=== PATIENT | male | born 1990 | race Caucasian/White ===

== ENCOUNTER 2017-11-12 10:37 | Outpatient (CLI) | payer BC, SELFPAY ==
[2017-11-12 11:58] LABS: Lithium 0.34 mmol/L (0.60-1.20)
[2017-11-12 12:11] LABS: ALT 32 U/L (12-78); AST 23 U/L (15-37); Albumin 3.9 g/dL (3.4-5.0); Alkaline Phosphatase 73 U/L (46-116); Anion Gap 7.9 mmol/L (3-11); BUN 8 mg/dL (7-18); Bilirubin, Total 1.3 mg/dL (0.2-1.0); CO2 27.1 mmol/L (21.0-32.0); CREATININE 1.07 mg/dL (0.70-1.30); Calcium 8.6 mg/dL (8.5-10.1); Chloride 105 mmol/L (98-107); Glucose 89 mg/dL (70-100); Potassium 3.9 mmol/L (3.5-5.1); Sodium 140 mmol/L (136-145); TSH 2.14 uIU/mL (0.358-3.74); Total Protein 7.2 g/dL (6.4-8.2)
== END 2017-11-12 10:57 ==
PROVIDERS: PCP Family Medicine; Visit Provider Nurse Practitioner Family
DX: F32.9 Major depressive disorder, single episode, unspecified (principal); E03.9 Hypothyroidism, unspecified; Z79.899 Other long term (current) drug therapy; Z51.81 Encounter for therapeutic drug level monitoring
CPT/HCPCS: 36415; 80053; 80178; 84443

== ENCOUNTER 2018-04-07 12:25 | Outpatient (CLI) | payer BC, SELFPAY ==
[2018-04-07 13:33] LABS: Lithium 0.54 mmol/L (0.60-1.20)
[2018-04-07 13:47] LABS: ALT 54 U/L (12-78); AST 30 U/L (15-37); Alkaline Phosphatase 86 U/L (46-116); BUN 9 mg/dL (7-18); Bilirubin, Total 1.1 mg/dL (0.2-1.0); CREATININE 0.92 mg/dL (0.70-1.30); Calcium 9.4 mg/dL (8.5-10.1); Chloride 103 mmol/L (98-107); Glucose 102 mg/dL (70-100); Potassium 3.8 mmol/L (3.5-5.1); Sodium 140 mmol/L (136-145); TSH (W/Ref FT4) 1.89 uIU/mL (0.358-3.74); Total Protein 7.7 g/dL (6.4-8.2)
== END 2018-04-07 12:45 ==
PROVIDERS: PCP Family Medicine; Visit Provider Nurse Practitioner Family
DX: F31.13 Bipolar disorder, current episode manic without psychotic features, severe (principal); Z51.81 Encounter for therapeutic drug level monitoring; Z79.899 Other long term (current) drug therapy
CPT/HCPCS: 36415; 80053; 80178; 84443

== ENCOUNTER 2018-10-13 03:03 | Emergency (ER) | payer BC, SELFPAY ==
[2018-10-13 03:06] VITALS: BP 149/85; PULSE 87; RESP 18; TEMP 36.7; O2SAT 97
--- NOTE | 2018-10-13 03:27 | W.ED.GENAD ---
Discharge Plan Disposition Patient Disposition: HOME Condition: Good Discharge Details Chief Complaint: DentalOral Clinical Impression: Pain, dental Primary Care Provider: Jerad Huggins ED Provider: Orlin Waterman Meds and New Rx's Prescriptions: New HurriCaine 20 % Gel 30 g mucous membrane Q4H PRNQty: 30 RF: 0 Continued lithium carbonate 300 mg Tablet 300 mg PO BID RF: 0 risperidone [Risperdal] 1 mg Tablet 1 mg PO DAILY RF: 0 Discharge Instructions Additional Instructions: There does not appear to be a dental infection. This seems to be pain related to a impacted wisdom tooth. You may use Tylenol for pain. Do not use anything containing nonsteroidal medication. You may use the Hurricaine gel as directed. You will need to follow-up with a dentist. Return to ED for fever, facial swelling, increasing pain, difficulty breathing, inability to swallow. Medical Decision Making Patient here with dental pain. He has fairly decent dentition with no obvious dental caries. There is no percussion tenderness of the teeth. Gingiva and mucosa look normal. He does have some pain over the left upper wisdom tooth which appears to be only partially through and impacted. I do not think he has a dental infection. Again there is no percussion tenderness of any of the left upper teeth. Will refer to dentistry for follow-up. No antibiotics at this point. Patient instructed to use Tylenol for pain. He is on lithium and should not be taking anything containing nonsteroidals. He is also given benzocaine gel 20% to use as a topical anesthetic every 4 hours as needed. Return to ED with fever, facial swelling, increasing dental pain, difficulty breathing, inability to swallow HPI General Mode of arrival: ambulatory. Date/Time Provider Initiated Documentation: 10/13/18 03:15. Limitations to Documentation: no limitations. Information obtained by: patient and RN notes reviewed. HPI Narrative: Patient presents to ED with left upper dental pain. He has had pain in the left upper jaw for about a week. Tonight it was worse. It radiates to his ear. He took Excedrin before coming in. Currently denies significant pain. Denies fever. Denies facial swelling. Denies difficulty breathing or swallowing. Related Data Home Medications Medication Instructions Recorded Confirmed benzocaine [HurriCaine] 30 g MUCOUS MEMBRANE Q4H PRN #30 gm 10/13/18 lithium carbonate 300 mg PO BID 10/13/18 10/13/18 risperidone [Risperdal] 1 mg PO DAILY 10/13/18 10/13/18 Previous Rx's Medication Instructions Recorded benzocaine [HurriCaine] 30 g MUCOUS MEMBRANE Q4H PRN #30 gm 10/13/18 Allergies Allergy/AdvReac Type Severity Reaction Status Date / Time No Known Allergies Allergy Unverified 05/20/17 16:14 General Stated Complaint: DentalOral TONE: 4 Review of Systems Constitutional Denies fever(s) ENT Reports dental pain, Denies neck pain and Denies odynophagia Cardiovascular Denies dyspnea Respiratory Denies dyspnea Gastrointestinal Denies odynophagia Musculoskeletal Denies neck pain [facility] Medical History Bipolar disorder (Chronic) Social History Smoking/Tobacco Use Status: Never Alcohol Intake: never Drug use: Never Substance use type: does not use Do you feel safe at home: Yes Do you feel safe in your relationship?: Yes Exam Const General: cooperative and no acute distress Nutritional Appearance: obese Orientation: alert and oriented x3 HENMT Head: normal to inspection, normocephalic and atraumatic Ears: external ears normal and TM's normal bilaterally Face and sinus: normal facial exam and sinuses nontender Teeth and gingiva: gingiva normal and abnormal tooth or associated gingiva (left upper wisdom tooth partially through/impacted) Neck Neck: no lymphadenopathy and no anterior neck swelling Skin General skin exam: no erythema Course Vital Signs Temperature 98.1 F 10/13/18 03:06 Pulse 87 10/13/18 03:06 Respiratory Rate 18 10/13/18 03:06 Blood Pressure 149/85 H 10/13/18 03:06 Pulse Oximetry 97 10/13/18 03:06 Temperature 98.1 F 10/13/18 03:06 Pulse 87 10/13/18 03:06 Respiratory Rate 18 10/13/18 03:06 Respiratory Effort Non-Labored 10/13/18 03:14 Blood Pressure 149/85 H 10/13/18 03:06 Pulse Oximetry 97 10/13/18 03:06 Oxygen Delivery Method Room Air 10/13/18 03:06 Oxygen Flow Rate 0 10/13/18 03:06 Pain Level 7 10/13/18 03:06
[2018-10-13] MEDS: Benzocaine 20% Gel 30 GM JAR MM (03:31)
[2018-10-13 03:39] VITALS: BP 149/85; PULSE 87; RESP 18; O2SAT 97
== END 2018-10-13 03:40 | disposition home or self-care (01) ==
PROVIDERS: Emergency Provider Emergency Medicine; PCP Family Medicine
DX: K08.89 Other specified disorders of teeth and supporting structures (principal)
CPT/HCPCS: 99283

== ENCOUNTER 2019-01-27 10:11 | Outpatient (CLI) | payer BC, SELFPAY ==
[2019-01-27 11:32] LABS: TSH (W/Ref FT4) 0.91 uIU/mL (0.36-3.74)
== END 2019-01-27 10:31 ==
PROVIDERS: PCP Family Medicine; Visit Provider Nurse Practitioner Family
DX: F32.9 Major depressive disorder, single episode, unspecified (principal); F25.9 Schizoaffective disorder, unspecified; Z79.899 Other long term (current) drug therapy
CPT/HCPCS: 36415; 84443

== ENCOUNTER 2021-06-08 20:28 | Inpatient (IN) | payer MEDICAID, SELFPAY ==
[2021-06-08] VITALS (36 sets, daily range): BP systolic 122–153; BP diastolic 75–117; PULSE 89–142; RESP 10–31; TEMP 36.6; O2SAT 96–100
--- NOTE | 2021-06-08 20:30 | RT.EKG_ITS ---
APPROVED REPORT Exam: Resting ECG Reason for Exam: tachycardia Patient Location: E HR:117 bpm ECG Measurements Heart Rate 117 AXIS TN 119 P 34 QRSd 84 QRS 30 QT 325 T 1 QTc 454 Conclusion Sinus tachycardia...rate> 99
--- NOTE | 2021-06-08 20:30 | DI.CT_ITS ---
Exam(s) CT HEAD WO EXAM: CT HEAD WO CLINICAL HISTORY: mental status change. TECHNIQUE: Imaging Protocol: Axial computed tomography images with coronal and sagittal reformatted images were created and reviewed COMPARISON: No exams were available for comparison FINDINGS: Ventricles and Extra axial spaces: Normal in size and morphology for the patient's age. Hemorrhage: None. Cerebral parenchyma: Normal. Midline shift: None. Brainstem/Cerebellum: Normal. Calvarium: Normal. Visualized Paranasal sinuses/Mastoids: Mild chronic sinus disease. No fluid levels. Soft Tissues: Unremarkable. IMPRESSION: No acute intracranial process. RADIATION DOSE DELIVERED: 875.13mGy.cm Total DLP DATA REPOSITORY: All CT scans at this facility are submitted to the National Radiology Data Registry (NRDR) Dose Index Registry (DIR) with the [employer] (A[employer]). RADIATION OPTIMIZATION: All CT scans at this facility use at least one of these dose optimization te chniques: automated exposure control; mA and/or kV adjustment per patient size (includes targeted exa ms where dose is matched to clinical indication); or iterative reconstruction.
--- NOTE | 2021-06-08 20:30 | DI.RAD_ITS ---
Exam(s) XR CHEST 2V PA LATERAL EXAM: XR CHEST 2V PA LATERAL CLINICAL HISTORY: mental status change TECHNIQUE: 2D digital imaging was performed of the chest. Three images were obtained. PA and later al views were obtained. COMPARISON: No exams were available for comparison FINDINGS: MEDIASTINUM: Normal. HEART: Normal. PULMONARY VASCULATURE: Normal. LUNGS: Clear. PLEURAL SPACE: No pleural effusion or pneumothorax. BONE:Within normal limits for the patient's age. OTHER FINDINGS:Normal. IMPRESSION: No acute pulmonary findings. DATA REPOSITORY: RADIATION DOSE DELIVERED:
--- NOTE | 2021-06-08 20:35 | W.ED.GENAD ---
Discharge Plan Disposition Patient Disposition: [facility] INPATIENT Condition: Stable Discharge Details Clinical Impression: Altered mental status Primary Care Provider: Jerad Huggins ED Provider: Cyrus Karimi Home Meds and New Rx's Prescriptions: No Action lithium carbonate 300 mg Tablet 300 mg PO BID 0RF risperidone [Risperdal] 1 mg Tablet 1 mg PO DAILY 0RF HurriCaine 20 % Gel 30 g mucous membrane Q4H PRNQty: 30 0RF Medical Decision Making 30-year-old male presents from home via EMS. He was seen by a friend who went to check on him and found to be sitting on the floor of his bedroom in an altered state. EMS was contacted and found the patient to be tachypneic and tachycardic, arousable and interactive but poorly understood. They report the patient having carpalpedal spasm but being responsive and appropriate with commands. Patient arrives ER afebrile, tachycardic, tachypneic, interactive but speaking in very halting sentences. He is noted to have a history of bipolar disorder. Differential diagnosis is broad including metabolic disorder, dehydration, electrolyte abnormalities, lithium toxicity. Patient IV access established, screening labs obtained, he is given fluids and referred for CT imaging of the head, chest x-ray. Patient given small aliquot of Ativan 0.5 mg. Patient's laboratories note a white count of 11, hematocrit 46, platelets 431. Venous pH is 7.48. Venous lactate 3.5. Chemistries reveal an anion gap of 20. Sodium 137, potassium 3.1, chloride 98, bicarb 18, BUN 16, creatinine 1.0. [place] level is negligible. Alcohol negative. Patient noted to have approximately 900 cc of urinary retention. Would consider diphenhydramine toxicity, particularly given the mild confusion, tachycardia and apparent urinary retention. Patient does seem to nod 'yes' when asked if he took Benadryl. His urine drug screen is positive for THC as well. Patient stated to the nurse that his mood has been down and he has had decreased p.o. intake this week. At approximately 10:30 PM he reported that he had had an attempt at hanging earlier in the week. He does not have bruising of the neck nor bruits on my exam. CT scan of the head without acute intracranial findings. Chest x-ray unremarkable. Case discussed with Dr. Gillis [facility] General Mode of arrival: EMS. Date/Time Provider Initiated Documentation: 06/08/21 20:55. Limitations to Documentation: no limitations. Information obtained by: patient and EMS. History of Present Illness 30 year old M presents to the emergency department with the chief complaint of Change in mental status, described as moderate, and is localized to the head. Patient started experiencing this unknown and it has been constant. improves with No relieving factors improve symptom(s), No exacerbating factors reported . Patient did receive the following treatments prior to arrival, none Related Data Home Medications Medication Instructions Recorded Confirmed benzocaine 20 % mucosal gel 30 g MUCOUS MEMBRANE Q4H PRN #30 gm 10/13/18 (HurriCaine) lithium carbonate 300 mg tablet 300 mg PO BID 10/13/18 10/13/18 risperidone 1 mg tablet (Risperdal) 1 mg PO DAILY 10/13/18 10/13/18 Previous Rx's Medication Instructions Recorded benzocaine 20 % mucosal gel 30 g MUCOUS MEMBRANE Q4H PRN #30 gm 10/13/18 (HurriCaine) Allergies Allergy/AdvReac Type Severity Reaction Status Date / Time No Known Allergies Allergy Unverified 05/20/17 16:14 General TONE: 4 Review of Systems Narrative: Patient unable to relate history Unobtainable due to mental status PFSH All Active Problems (Updated 06/08/21 @ 22:15 by Cyrus Karimi MD) Altered mental status (Acute) Bipolar disorder (Chronic) Social History Smoking/Tobacco Use Status: Never Smoking risk assessment performed?: Yes Alcohol Intake: never Drug use: Never Substance use type: does not use Do you feel safe at home: Yes Do you feel safe in your relationship?: Yes Exam Narrative Exam Narrative: GEN: awake, interactive. HEAD: Normocephalic, atraumatic ENT: Mucous membranes dry, oropharynx unremarkable, External ear exam unremarkable EYES: PERRL, EOMI NECK: Full ROM, no JEN, no menigismus CHEST/RESP: Nontender, clear to auscultation bilateral, no wheeze/rhonchi/rales, increased respiratory rate CARDIOVASCULAR: Regular and tachycardic, no murmur, rub shaq. 2+ Rad pulse bilateral ABDOMEN: Soft, nontender, no mass. +Bowel sounds EXT: Full ROM, no edema, no rash Neuro: Grossly normal neurologic exam, tremulous at times. Psych: Speech halting
[2021-06-08] MEDS: Normal Saline 1,000 ML 1000 ML IV ×2 (20:44→20:45)
[2021-06-08 20:48] LABS: BE (Venous) -4 mmol/L (-2-3); HCO3 (Venous) 19 mmol/L (23-28); O2 Sat (Venous) 91 %; TCO2 (Venous) 16 mmol/L (24-29); pCO2 (Venous) 26 mmHg (41-51); pH (Venous) 7.48 (7.31-7.41); pO2 (Venous) 55 mmHg
[2021-06-08 20:51] LABS: Abs Immature Grans 0.05 10^3/uL (0.0-0.06); Absolute Basophil Count 0.06 10^3/uL (0.0-0.2); Absolute Monocyte Count 1.09 10^3/uL (0.1-0.8); Absolute Neutrophil Count 7.91 10^3/uL (1.2-6.7); Basophils % 0.5; Eosinophils % 0.3; HCT 46.7 % (40.0-50.0); Immature Grans % 0.4; Lymphocytes % 21.3; MCH 31.1 pg (27.0-33.0); MCHC 36.4 % (32.0-36.0); MCV 85.4 fL (80-95); Monocytes % 9.4; Neutrophils % 68.1; Nucleated RBC 0 %; Platelet Count 431 10^3/uL (130-400); RBC 5.47 10^6/uL (4.36-5.78); RDW 12.2 % (11.8-14.1); RDW-SD 38.1 fL; WBC 11.62 10^3/uL (4.4-10.8)
[2021-06-08 20:52] LABS: Lactate 3.5 mmol/L (0.6-1.4)
[2021-06-08 20:54] LABS: Absolute Eosinophil Count 0.03 10^3/uL (0.0-0.7); Absolute Lymphocyte Count 2.48 10^3/uL (1.2-3.4)
[2021-06-08 21:12] LABS: ALT 21 U/L (16-63); AST 15 U/L (15-37); Albumin 4.8 g/dL (3.4-5.0); Alkaline Phosphatase 77 U/L (46-116); Anion Gap 20.2 mmol/L (3-11); BUN 16 mg/dL (7-18); Bilirubin, Total 3.1 mg/dL (0.2-1.0); CO2 18.8 mmol/L (21.0-32.0); Calcium 9.7 mg/dL (8.5-10.1); Chloride 98 mmol/L (98-107); Glucose 128 mg/dL (74-106); Potassium 3.1 mmol/L (3.5-5.1); Sodium 137 mmol/L (136-145); TSH (W/Ref FT4) 2.42 uIU/mL (0.36-3.74); Total Protein 8.6 g/dL (6.4-8.2)
[2021-06-08 21:15] LABS: ETHANOL BLOOD < 3.0 mg/dL (<10)
[2021-06-08 21:31] LABS: Acetaminophen < 2 ug/mL (10-30); Lithium < 0.2 mmol/l (0.6-1.2); Salicylate < 2.8 mg/dL (<2.8)
[2021-06-08 21:50] LABS: Bilirubin Moderate (Negative); Blood Trace-intact (Negative); Clarity Clear (Clear); Glucose Negative (Negative); Ketones 40 mg/dL (Negative); Leukocyte Esterase Negative (Negative); Nitrite Negative (Negative); Specific Gravity 1.025 (1.005-1.025); Urobilinogen 0.2 EU/dL (Up TO 0.2)
[2021-06-08] MEDS: LORazepam 2 MG/ML VIAL 0.5 MG IVP (21:52)
[2021-06-08 22:05] LABS: *AMPHETAMINES SCREEN URINE Negative (Negative); *BARBITURATES SCREEN URINE Negative (Negative); *BENZODIAZEPINES SCREEN URINE Negative (Negative); Cannabinoids THC Positive (Negative); Cocaine Screen,Urine Negative (Negative); METHADONE URINE SCREEN Negative (Negative); OPIATES URINE SCREEN Negative (Negative); Tricyclic Antidepressants Negative (Negative); WBC 0-2 HPF (0-5)
[2021-06-08 22:06] LABS: Bacteria Negative HPF (Negative); C & S Indicated? No; Epithelial Cells Negative HPF (Negative); Mucus Negative (Negative)
--- NOTE | 2021-06-08 22:09 | DI.VRAD_ITS ---
PROCEDURE INFORMATION: Exam: CT Head Without Contrast Exam date and time: 06/08/2021 9:11 PM Age: 30 years old Clinical indication: Other: AMS TECHNIQUE: Imaging protocol: Computed tomography of the head without contrast. Radiation optimization: All CT scans at this facility use at least one of these dose optimization techniques: automated exposure control; mA and/or kV adjustment per patient size (includes targeted exams where dose is matched to clinical indication); or iterative reconstruction. COMPARISON: No relevant prior studies available. FINDINGS: Brain: Normal. No hemorrhage. Unremarkable white matter. No mass effect. Cerebral ventricles: No ventriculomegaly. Paranasal sinuses: There is a mucous retention cyst within the left maxillary sinus. There is slight mucosal thickening of the sphenoid sinuses. The right frontal sinus is not developed. Mastoid air cells: Visualized mastoid air cells are well aerated. Bones/joints: Unremarkable. No acute fracture. Soft tissues: Unremarkable. IMPRESSION: Sinus findings as above. Dictated and Authenticated by: Miah Parks MD. Ordering:IDALMIS Bridges MD
--- NOTE | 2021-06-08 22:10 | DI.VRAD_ITS ---
PROCEDURE INFORMATION: Exam: XR Chest Exam date and time: 06/08/2021 9:17 PM Age: 30 years old Clinical indication: Other: AMS TECHNIQUE: Imaging protocol: XR of the chest. Views: 2 views. COMPARISON: No relevant prior studies available. FINDINGS: Lungs: Unremarkable. No consolidation. Pleural spaces: Unremarkable. No pleural effusion. No pneumothorax. Heart/Mediastinum: Unremarkable. No cardiomegaly. Bones/joints: Unremarkable. IMPRESSION: No acute findings. Dictated and Authenticated by: Miah Parks MD. Ordering:IDALMIS Bridges MD
[2021-06-08] MEDS: POTASSIUM CHLORIDE/0.9% NACL 1,000 ML 125 MEQ IV (22:18)
--- NOTE | 2021-06-08 22:36 | HPE_ITS ---
Date of service: 06/08/21 Time of Service: 22:36 Assessment and Plan Assessment and plan (1) Altered mental status: Status: Acute Assessment and plan: Altered state, looking like something toxic/metabolic. The unusual finding of urinary retention, in combination with tachycardia, raises question of possible anticholinergic toxicity, though this is speculative. At any rate he is acting like he has been under the influence of some (unknown) substance -- and by accounts seems to be clearing. Normal EKG (aside from sinus tach) is reassuring. I would favor continued hydration and observation. Given h/o attempted hanging I would have to burrer marker axle this (possible) OD as intentional harm. Will maintain pr ecautions and have mental health evaluate in morning. Various metabolic abnormalities noted: K -- being replenished; Bili -- unknown etiology, with normal TAs. Will trend and w/u as indicated; Respiratory alkalosis, with possible component metabolic acidosis -- this combination would raise question of salicylate toxicity, but salicylate negative. Whatever the precise etiology I suspect all related to exogenous substance. Elevated lactate noted, but patient notably not hypotensive. Will admit to ICU for close monitoring and will trend electrolytes, lactate and bilirubin. History of Present Illness History of Present Illness Chief Complaint: altered mental status Narrative: 30 male with h/o bipolar, apparently not on any meds at present -- friend went to check on him and found him altered and summoned EMS. EMS reported patient as tachypneic, tachycardic, following commands but not communicative. Here in ER initial findings of note for pulse approx 140, halting speech and non-focal exam, and after Castro placed initial 900 cc urine. Labs of note for white count 11.6, HCT 46; Na 137, K 3.1, Chloride 98, HCO3 18.8; BUN/Cr 16/1.0; TBili 3.1 with AST/ALT 15/21; UDS + THC; EKG sinus tach; CXR and head CT negative. [place] level non-detectable. VBG pH 7.48, with HCO3 18 Patient has receieved 2L fluids and 0.5 Ativan. Staff note sensorium seems to be clearing. Nurse obtains further history that patient tried to hang himself twice over the past week. I was asked to evaluate for admission. Patient denies taking any illicit substances. Denies pain or SOB. States he feels safe here but unable to elaborate on prior attempts at self harm. Review of Systems Narrative: per HPI PFSH All Active Problems Altered mental status (Acute) Bipolar disorder (Chronic) Social History Smoking/Tobacco Use Status: Never Smoking risk assessment performed?: Yes Alcohol Intake: never Drug use: Never Substance use type: does not use Do you feel safe at home: Yes Do you feel safe in your relationship?: Yes Meds Allergies and Home Medications Allergies Allergy/AdvReac Type Severity Reaction Status Date / Time No Known Allergies Allergy Unverified 05/20/17 16:14 Home Medications Medication Instructions Recorded Confirmed Type benzocaine 20 % mucosal gel 30 g MUCOUS MEMBRANE Q4H PRN #30 gm 10/13/18 Rx (HurriCaine) lithium carbonate 300 mg tablet 300 mg PO BID 10/13/18 10/13/18 History risperidone 1 mg tablet (Risperdal) 1 mg PO DAILY 10/13/18 10/13/18 History Exam Narrative Exam Narrative: 148/90, 115, 36.6, 20, 99% RA. HEENT atraumatic, pupils approx 5 mm; oral mucosa dry; neck supple; lungs clear; heart tachy/regular; abdomen +BS soft and NT; extremities trace pedal edema; neuro more or less intelligible conversation (eg, My mouth is dry) but not extended, and follows commands; moves all 4s equally Results Labs Result diagrams: 06/08/21 20:40 06/08/21 20:40 Labs: Laboratory Results - last 24 hr 06/08/21 06/08/21 06/08/21 20:40 20:40 20:40 WBC RBC Hgb Hct MCV MCH MCHC RDW Plt Count MPV Immature Gran % Neutrophils % Lymphocytes % Monocytes % Eosinophils % Basophils % Nucleated RBC % Absolute Neutrophils Absolute Lymphocytes Absolute Monocytes Absolute Eosinophils Absolute Basophils VBG pH VBG pCO2 VBG pO2 VBG HCO3 VBG Total CO2 VBG O2 Saturation VBG Base Excess VBG Lactate 3.5 H* Sodium 137 Potassium 3.1 L Chloride 98 Carbon Dioxide 18.8 L Anion Gap 20.2 H BUN 16 Creatinine 1.0 Estimated GFR/1.73 m2 >= 60.00 Glucose 128 H Calcium 9.7 Total Bilirubin 3.1 H AST 15 ALT 21 Alkaline Phosphatase 77 Total Protein 8.6 H Albumin 4.8 TSH 2.42 Urine Color Urine Clarity Urine pH Ur Specific [place] Urine Protein Urine Ketones Urine Blood Urine Nitrite Urine Bilirubin Urine Urobilinogen Ur Leukocyte Esterase Urine RBC Urine WBC Ur Epithelial Cells Urine Crystals Urine Bacteria Urine Mucus Ur Culture Indicated? Urine Glucose Salicylates < 2.8 Urine Opiates Screen Urine Methadone Screen Acetaminophen < 2 Ur Barbiturates Screen Ur Tricyclics Screen Ur Amphetamines Screen U Benzodiazepines Scrn [place] Urine Cocaine Screen Ur THC Screen Ethyl Alcohol < 3.0 06/08/21 06/08/21 06/08/21 20:40 20:40 20:40 WBC 11.62 H RBC 5.47 Hgb 17.0 Hct 46.7 MCV 85.4 MCH 31.1 MCHC 36.4 H RDW 12.2 Plt Count 431 H MPV 11.0 Immature Gran % 0.4 Neutrophils % 68.1 Lymphocytes % 21.3 Monocytes % 9.4 Eosinophils % 0.3 Basophils % 0.5 Nucleated RBC % 0 Absolute Neutrophils 7.91 H Absolute Lymphocytes 2.48 Absolute Monocytes 1.09 H Absolute Eosinophils 0.03 Absolute Basophils 0.06 VBG pH 7.48 H VBG pCO2 26 L VBG pO2 55 VBG HCO3 19 L VBG Total CO2 16 L VBG O2 Saturation 91 VBG Base Excess -4 L VBG Lactate Sodium Potassium Chloride Carbon Dioxide Anion Gap BUN Creatinine Estimated GFR/1.73 m2 Glucose Calcium Total Bilirubin AST ALT Alkaline Phosphatase Total Protein Albumin TSH Urine Color Urine Clarity Urine pH Ur Specific [place] Urine Protein Urine Ketones Urine Blood Urine Nitrite Urine Bilirubin Urine Urobilinogen Ur Leukocyte Esterase Urine RBC Urine WBC Ur Epithelial Cells Urine Crystals Urine Bacteria Urine Mucus Ur Culture Indicated? Urine Glucose Salicylates Urine Opiates Screen Urine Methadone Screen Acetaminophen Ur Barbiturates Screen Ur Tricyclics Screen Ur Amphetamines Screen U Benzodiazepines Scrn [place] < 0.2 L Urine Cocaine Screen Ur THC Screen Ethyl Alcohol 06/08/21 06/08/21 21:19 21:19 WBC RBC Hgb Hct MCV MCH MCHC RDW Plt Count MPV Immature Gran % Neutrophils % Lymphocytes % Monocytes % Eosinophils % Basophils % Nucleated RBC % Absolute Neutrophils Absolute Lymphocytes Absolute Monocytes Absolute Eosinophils Absolute Basophils VBG pH VBG pCO2 VBG pO2 VBG HCO3 VBG Total CO2 VBG O2 Saturation VBG Base Excess VBG Lactate Sodium Potassium Chloride Carbon Dioxide Anion Gap BUN Creatinine Estimated GFR/1.73 m2 Glucose Calcium Total Bilirubin AST ALT Alkaline Phosphatase Total Protein Albumin TSH Urine Color Yellow Urine Clarity Clear Urine pH 7.0 Ur Specific [place] 1.025 Urine Protein Trace H Urine Ketones 40 H Urine Blood Trace-intact H Urine Nitrite Negative Urine Bilirubin Moderate H Urine Urobilinogen 0.2 Ur Leukocyte Esterase Negative Urine RBC 5-10 H Urine WBC 0-2 Ur Epithelial Cells Negative Urine Crystals Urine Bacteria Negative Urine Mucus Negative Ur Culture Indicated? No Urine Glucose Negative Salicylates Urine Opiates Screen Negative Urine Methadone Screen Negative Acetaminophen Ur Barbiturates Screen Negative Ur Tricyclics Screen Negative Ur Amphetamines Screen Negative U Benzodiazepines Scrn Negative [place] Urine Cocaine Screen Negative Ur THC Screen Positive A Ethyl Alcohol Last Vital Signs Temp 36.6 C 06/08/21 20:34 Pulse 115 H 06/08/21 21:40 Resp 20 06/08/21 21:40 BP 148/90 H 06/08/21 21:40 Pulse Ox 99 06/08/21 21:40
[2021-06-08 23:04] LABS: COVID-19 PCR Negative (Negative); Influenza A PCR Negative (Negative); Influenza B PCR Negative (Negative); RSV PCR Negative (Negative)
[2021-06-09] VITALS (28 sets, daily range): BP systolic 121–154; BP diastolic 70–94; PULSE 95–125; RESP 11–30; TEMP 36.1–36.7; O2SAT 94–99
[2021-06-09 02:30] LABS: Lactate 0.6 mmol/L (0.6-1.4)
[2021-06-09 02:39] LABS: Anion Gap 12.6 mmol/L (3-11); CO2 22.4 mmol/L (21.0-32.0); Chloride 106 mmol/L (98-107); Potassium 3.6 mmol/L (3.5-5.1); Sodium 141 mmol/L (136-145)
[2021-06-09 02:43] LABS: Bilirubin, Direct 0.3 mg/dL (0.0-0.2)
[2021-06-09 06:58] LABS: Anion Gap 10.2 mmol/L (3-11); Bilirubin, Total 2.3 mg/dL (0.2-1.0); CO2 22.8 mmol/L (21.0-32.0); Chloride 108 mmol/L (98-107); Potassium 3.8 mmol/L (3.5-5.1); Sodium 141 mmol/L (136-145)
[2021-06-09] MEDS: POTASSIUM CHLORIDE/0.9% NACL 1,000 ML 150 MEQ IV (07:44)
--- NOTE | 2021-06-09 08:45 | INITIAL_ITS ---
- If Service Date Differs Date of service: 06/09/21 Time of Service: 08:45 Care Management Initial Assess REASON FOR HOSPITALIZATION:: AMS, possible drug OD PAST MEDICAL HISTORY/PAST SURGICAL HISTORY:: Altered mental status (Acute). Bipolar disorder (Chronic) PREVIOUS FUNCTIONAL STATUS/SOCIAL/FAMILY SUPPORTS:: Wilman resides in [facility] and has family in the area, including both of his parents. He is independent at baseline. CURRENT FUNCTIONAL STATUS:: Wilman is in the ICU with AMS-clearing per MD. He has psychomotor impairment at this time, and his movements and words are very slow. He expressed not wanting his family to be updated or involved in his care at this time; his wishes will be honored. ADVANCE DIRECTIVES:: None on file. Has patient been provided with info about the portal/API?: Yes Did the patient sign up for the portal?: No CODE STATUS:: Full Code INSURANCE COVERAGE / FINANCIAL ISSUES:: Self Pay: BRIAN referral. CURRENT HOME/COMMUNITY SERVICES/EQUIPMENT:: None, currently. PRIMARY CARE PHYSICIAN:: Jerad Huggins POTENTIAL DISCHARGE NEEDS:: [facility] Crisis Eval, BRIAN referral for insurance. PATIENT/FAMILY EDUCATION NEEDS:: Review of discharge instructions, discuss Ask Me Three. ANTICIPATED BARRIERS TO DISCHARGE:: None identified. TRANSPORTATION:: Dependent on disposition. PLAN:: Wilman continues to be monitored in the ICU. Anticipate once medically cleared, he will be evaluated by [facility] crisis screener to determine treatment plan.
--- NOTE | 2021-06-09 09:27 | W.PM.PROGNOT ---
Date of Service Date of service: 06/09/21 Time of Service: 09:27 Assessment and Plan Assessment and plan (1) Altered mental status: Status: Acute Assessment and plan: given his lactic acidosis and tachycardia and tachypnea and decreased mental status on EMS evaluation and ED evaluation this raises concerns that he may have been using a substance that we did not detect on UDS. however if he had a narcotic OD he would have been bradypneic or apneic not tachypneic. Some component of his mental status change is due to his being off his BPD meds. I will resume his lithium and risperidone and see how he responds. CC time 30 minutes (2) Bipolar disorder: Status: Chronic Assessment and plan: patient's lithium level was below detectable limits. I will put him back on his lithium and risperidone but if he is not improving then getting a tele-psych consult would be appropriate. He should be evaluated by mental health for inpatient psychiatric care given the reported attempt at hanging although there is no visible evidence that he made any serious attempt i.e. no visible bruising or abrasions on his neck (3) Lactic acidosis: Status: Resolved Assessment and plan: unclear etiology. UDS tox screen was negative except for THC. patient responded to iv fluids overnight and lactic acidosis has resolved, lactate now 0.6, and AG now 10.2. Subjective Subjective Interval history since last seen: 30-year-old male with a history of bipolar disorder who is supposed to be taking risperidone and lithium carbonate was brought to the emergency department with altered mental status. Patient was found by a friend who went to check on him and the patient was sitting on the floor of his bedroom and altered mental state. EMS was contacted and he was found to be tachypneic and tachycardic arousable but poorly interactive. On arrival to emergency department he was afebrile tachycardic and tachypneic and speaking in very halting sentences. Work-up in the emergency department included CT scan of his head that showed no acute intracranial process. Chest x-ray showed no acute cardiopulmonary findings. ECG demonstrates sinus tachycardia rate of 117 bpm with a normal [place] interval of 119 ms QTc interval 454 ms. Pertinent laboratory findings his urine drug screen was positive for THC but otherwise negative for usual drugs of abuse including negative for opiates, methadone, barbiturates, tricyclic, amphetamines, benzodiazepines, cocaine. Blood alcohol level was less than 3.0 and his acetaminophen level was less than 2 and salicylates were less than 2.8. Chemistry profile was remarkable for elevated bilirubin of 3.1 with normal AST ALT and alkaline phosphatase and a conjugated bilirubin of 0.3 BUN and creatinine were normal at 16 and 1.0 but the patient had a lactic acidosis with an anion gap of 20 carbon dioxide level of 18 and a lactate of 3.5 with a VBG pH of 7.48. Of note his lithium level was nonmeasurable. Patient was noted to have urinary retention of 900 mL and a Castro catheter was placed. Concern was raised that he may have take Benadryl causing diphenhydramine toxicity with urinary retention confusion and tachycardia. However this does not explain his lactic acidosis. Patient reportedly had attempted to hang himself earlier in the week. Patient was treated in emergency department with iv fluids x 2 liters and Ativan. He was admitted to ICU as possible O.D. of unknown substance and BPD exacerbation w/ depression and suicidal ideation. Exam Narrative Exam Narrative: Wilman is sitting up in bed he is able to talk to me but he mumbles and has trouble staying focused on my questions. When I asked him what happened yesterday he just states that he messed up. He would not give me specifics about what substances he may have taken. Information obtained by the nurse from the family indicated that in the past when he is going off his medications for his bipolar disorder he is going into like a catatonic state. Wilman is sitting up in bed just fidgeting with his hands attempting to eat a custard cup. Neck is supple no visible bruising Lungs are clear Heart is regular but tachycardic without murmur Abdomen soft nontender Extremities: no signs of cutting or needle tracks Objective Last Vital Signs Temp 36.6 C 06/09/21 04:15 Pulse 97 H 06/09/21 06:00 Resp 15 06/09/21 06:00 BP 135/73 06/09/21 06:00 Pulse Ox 95 06/09/21 06:00 Laboratory Results - last 24 hr 06/08/21 06/08/21 06/08/21 20:40 20:40 20:40 WBC RBC Hgb Hct MCV MCH MCHC RDW Plt Count MPV Immature Gran % Neutrophils % Lymphocytes % Monocytes % Eosinophils % Basophils % Nucleated RBC % Absolute Neutrophils Absolute Lymphocytes Absolute Monocytes Absolute Eosinophils Absolute Basophils VBG pH VBG pCO2 VBG pO2 VBG HCO3 VBG Total CO2 VBG O2 Saturation VBG Base Excess VBG Lactate 3.5 H* Sodium 137 Potassium 3.1 L Chloride 98 Carbon Dioxide 18.8 L Anion Gap 20.2 H BUN 16 Creatinine 1.0 Estimated GFR/1.73 m2 >= 60.00 Glucose 128 H Calcium 9.7 Total Bilirubin 3.1 H Conjugated Bilirubin AST 15 ALT 21 Alkaline Phosphatase 77 Total Protein 8.6 H Albumin 4.8 TSH 2.42 Urine Color Urine Clarity Urine pH Ur Specific [place] Urine Protein Urine Ketones Urine Blood Urine Nitrite Urine Bilirubin Urine Urobilinogen Ur Leukocyte Esterase Urine RBC Urine WBC Ur Epithelial Cells Urine Crystals Urine Bacteria Urine Mucus Ur Culture Indicated? Urine Glucose Salicylates < 2.8 Urine Opiates Screen Urine Methadone Screen Acetaminophen < 2 Ur Barbiturates Screen Ur Tricyclics Screen Ur Amphetamines Screen U Benzodiazepines Scrn [place] Urine Cocaine Screen Ur THC Screen Ethyl Alcohol < 3.0 COVID-19 Source SARS-CoV-2 (PCR) Influenza Type A (PCR) Influenza Type B (PCR) RSV (PCR) 06/08/21 06/08/21 06/08/21 20:40 20:40 20:40 WBC 11.62 H RBC 5.47 Hgb 17.0 Hct 46.7 MCV 85.4 MCH 31.1 MCHC 36.4 H RDW 12.2 Plt Count 431 H MPV 11.0 Immature Gran % 0.4 Neutrophils % 68.1 Lymphocytes % 21.3 Monocytes % 9.4 Eosinophils % 0.3 Basophils % 0.5 Nucleated RBC % 0 Absolute Neutrophils 7.91 H Absolute Lymphocytes 2.48 Absolute Monocytes 1.09 H Absolute Eosinophils 0.03 Absolute Basophils 0.06 VBG pH 7.48 H VBG pCO2 26 L VBG pO2 55 VBG HCO3 19 L VBG Total CO2 16 L VBG O2 Saturation 91 VBG Base Excess -4 L VBG Lactate Sodium Potassium Chloride Carbon Dioxide Anion Gap BUN Creatinine Estimated GFR/1.73 m2 Glucose Calcium Total Bilirubin Conjugated Bilirubin AST ALT Alkaline Phosphatase Total Protein Albumin TSH Urine Color Urine Clarity Urine pH Ur Specific [place] Urine Protein Urine Ketones Urine Blood Urine Nitrite Urine Bilirubin Urine Urobilinogen Ur Leukocyte Esterase Urine RBC Urine WBC Ur Epithelial Cells Urine Crystals Urine Bacteria Urine Mucus Ur Culture Indicated? Urine Glucose Salicylates Urine Opiates Screen Urine Methadone Screen Acetaminophen Ur Barbiturates Screen Ur Tricyclics Screen Ur Amphetamines Screen U Benzodiazepines Scrn [place] < 0.2 L Urine Cocaine Screen Ur THC Screen Ethyl Alcohol COVID-19 Source SARS-CoV-2 (PCR) Influenza Type A (PCR) Influenza Type B (PCR) RSV (PCR) 06/08/21 06/08/21 06/08/21 21:19 21:19 21:36 WBC RBC Hgb Hct MCV MCH MCHC RDW Plt Count MPV Immature Gran % Neutrophils % Lymphocytes % Monocytes % Eosinophils % Basophils % Nucleated RBC % Absolute Neutrophils Absolute Lymphocytes Absolute Monocytes Absolute Eosinophils Absolute Basophils VBG pH VBG pCO2 VBG pO2 VBG HCO3 VBG Total CO2 VBG O2 Saturation VBG Base Excess VBG Lactate Sodium Potassium Chloride Carbon Dioxide Anion Gap BUN Creatinine Estimated GFR/1.73 m2 Glucose Calcium Total Bilirubin Conjugated Bilirubin AST ALT Alkaline Phosphatase Total Protein Albumin TSH Urine Color Yellow Urine Clarity Clear Urine pH 7.0 Ur Specific [place] 1.025 Urine Protein Trace H Urine Ketones 40 H Urine Blood Trace-intact H Urine Nitrite Negative Urine Bilirubin Moderate H Urine Urobilinogen 0.2 Ur Leukocyte Esterase Negative Urine RBC 5-10 H Urine WBC 0-2 Ur Epithelial Cells Negative Urine Crystals Urine Bacteria Negative Urine Mucus Negative Ur Culture Indicated? No Urine Glucose Negative Salicylates Urine Opiates Screen Negative Urine Methadone Screen Negative Acetaminophen Ur Barbiturates Screen Negative Ur Tricyclics Screen Negative Ur Amphetamines Screen Negative U Benzodiazepines Scrn Negative [place] Urine Cocaine Screen Negative Ur THC Screen Positive A Ethyl Alcohol COVID-19 Source Not Applicable SARS-CoV-2 (PCR) Negative Influenza Type A (PCR) Negative Influenza Type B (PCR) Negative RSV (PCR) Negative 06/09/21 06/09/21 06/09/21 02:23 02:23 02:23 WBC RBC Hgb Hct MCV MCH MCHC RDW Plt Count MPV Immature Gran % Neutrophils % Lymphocytes % Monocytes % Eosinophils % Basophils % Nucleated RBC % Absolute Neutrophils Absolute Lymphocytes Absolute Monocytes Absolute Eosinophils Absolute Basophils VBG pH VBG pCO2 VBG pO2 VBG HCO3 VBG Total CO2 VBG O2 Saturation VBG Base Excess VBG Lactate 0.6 Sodium 141 Potassium 3.6 Chloride 106 Carbon Dioxide 22.4 Anion Gap 12.6 H BUN Creatinine Estimated GFR/1.73 m2 Glucose Calcium Total Bilirubin Conjugated Bilirubin 0.3 H AST ALT Alkaline Phosphatase Total Protein Albumin TSH Urine Color Urine Clarity Urine pH Ur Specific [place] Urine Protein Urine Ketones Urine Blood Urine Nitrite Urine Bilirubin Urine Urobilinogen Ur Leukocyte Esterase Urine RBC Urine WBC Ur Epithelial Cells Urine Crystals Urine Bacteria Urine Mucus Ur Culture Indicated? Urine Glucose Salicylates Urine Opiates Screen Urine Methadone Screen Acetaminophen Ur Barbiturates Screen Ur Tricyclics Screen Ur Amphetamines Screen U Benzodiazepines Scrn [place] Urine Cocaine Screen Ur THC Screen Ethyl Alcohol COVID-19 Source SARS-CoV-2 (PCR) Influenza Type A (PCR) Influenza Type B (PCR) RSV (PCR) 06/09/21 06:35 WBC RBC Hgb Hct MCV MCH MCHC RDW Plt Count MPV Immature Gran % Neutrophils % Lymphocytes % Monocytes % Eosinophils % Basophils % Nucleated RBC % Absolute Neutrophils Absolute Lymphocytes Absolute Monocytes Absolute Eosinophils Absolute Basophils VBG pH VBG pCO2 VBG pO2 VBG HCO3 VBG Total CO2 VBG O2 Saturation VBG Base Excess VBG Lactate Sodium 141 Potassium 3.8 Chloride 108 H Carbon Dioxide 22.8 Anion Gap 10.2 BUN Creatinine Estimated GFR/1.73 m2 Glucose Calcium Total Bilirubin 2.3 H Conjugated Bilirubin AST ALT Alkaline Phosphatase Total Protein Albumin TSH Urine Color Urine Clarity Urine pH Ur Specific [place] Urine Protein Urine Ketones Urine Blood Urine Nitrite Urine Bilirubin Urine Urobilinogen Ur Leukocyte Esterase Urine RBC Urine WBC Ur Epithelial Cells Urine Crystals Urine Bacteria Urine Mucus Ur Culture Indicated? Urine Glucose Salicylates Urine Opiates Screen Urine Methadone Screen Acetaminophen Ur Barbiturates Screen Ur Tricyclics Screen Ur Amphetamines Screen U Benzodiazepines Scrn [place] Urine Cocaine Screen Ur THC Screen Ethyl Alcohol COVID-19 Source SARS-CoV-2 (PCR) Influenza Type A (PCR) Influenza Type B (PCR) RSV (PCR)
[2021-06-09] MEDS: risperiDONE 1 MG TAB PO (11:45)
--- NOTE | 2021-06-09 11:51 | NUR.NOTE ---
Spoke to pt's step-father. He stated that patient is non-compliant with taking his mental health medications. Pt has been hospitalized for mental health changes previously. His step-father advised that when pt was last in a facility for his mental health status his s/s included catatonic state of not being able to feed or care for himself, and delayed speech. Those are the pt's current symptoms.
--- NOTE | 2021-06-09 12:45 | PHACLINREV_ITS ---
Pharmacy Admission Review - Admission Clinical Review (Last Reviewed 06/08/21 @ 22:50 by Jerad Gillis MD) Altered mental status (Acute) No Known Allergies Allergy (Unverified 05/20/17 16:14) Resuscitation Status Full Code Weight 103.7 kg - Renal Dosing Renal Dosing: BUN 16 mg/dL (7-18) 06/08/21 20:40 Creatinine 1.0 mg/dL (0.70-1.30) 06/08/21 20:40 Medications needing adjustments: Reviewed (Current meds okay.) - Anticoagulation Anticoagulation: Hgb 17.0 g/dL (13.5-17.5) 06/08/21 20:40 Hct 46.7 % (40.0-50.0) 06/08/21 20:40 Plt Count 431 10^3/uL (130-400) H 06/08/21 20:40 Creatinine 1.0 mg/dL (0.70-1.30) 06/08/21 20:40 DVT Prophylaxis: Reviewed Therapeutic Anticoagulation: N/A - Opiate Usage Evaluate Pain Scale/Pains Meds: N/A - Relevant Labs Sodium 141 mmol/L (136-145) 06/09/21 06:35 Potassium 3.8 mmol/L (3.5-5.1) 06/09/21 06:35 Chloride 108 mmol/L (98-107) H 06/09/21 06:35 Electrolytes, C-Reactive P, ESR: Reviewed - DM Control DM Control: Glucose 128 mg/dL (74-106) H 06/08/21 20:40 Insulin Dosing: N/A - Heart Failure/MD EF%, FAREED's, B-Blockers, Diuretics: N/A - BP Control BP Control: Blood Pressure [Right Arm] 124/94 Blood Pressure 144/87 Blood Pressure 124/94 Blood Pressure 135/73 Blood Pressure 141/70 Blood Pressure 132/73 If elevated: Reviewed (BP has been normal to high so far this admission.) - Qtc Review If Elevated: N/A (QTc 454 on admission) - IV to PO Switch IV Medications: Reviewed - Home Meds Home Med List reviewed: Intervened (Medrec had not been completed. Only med listed on external med history was olanzapine. PCPs office was contacted for home med list and pharmacy called to double check info from external med history (olanzapine last filled 02/2021). Home med list updated in [facility] and provider notified of this info) - Current meds Current Medication Order Review: Reviewed - Comments Comments/Follow Ups: Watch BP, labs and for med changes.
[2021-06-09] MEDS: Normal Saline Flush 10 ML SYR IVP (20:15)
[2021-06-09] MEDS: OLANZapine 5 MG TAB PO (20:15)
[2021-06-09 22:21] LABS: Bilirubin Negative (Negative); Blood Moderate (Negative); Clarity Cloudy (Clear); Glucose Negative (Negative); Ketones 80 mg/dL (Negative); Leukocyte Esterase Large (Negative); Nitrite Negative (Negative); Specific Gravity >= 1.030 (1.005-1.025); pH 6.5 (5-8)
[2021-06-09 23:00] LABS: Bacteria Many HPF (Negative); C & S Indicated? Yes; Casts Negative LPF (Negative); Crystals Negative HPF (Negative); Epithelial Cells Negative HPF (Negative); Mucus Negative (Negative); RBC 20-50 HPF (0-2); WBC >50 HPF (0-5)
[2021-06-10] VITALS (19 sets, daily range): BP systolic 116–136; BP diastolic 70–86; PULSE 84–112; RESP 11–22; TEMP 36.3–36.7; O2SAT 96–98
[2021-06-10 07:41] LABS: ALT 19 U/L (16-63); AST 11 U/L (15-37); Albumin 3.5 g/dL (3.4-5.0); Alkaline Phosphatase 59 U/L (46-116); Anion Gap 9.6 mmol/L (3-11); BUN 7 mg/dL (7-18); CO2 26.4 mmol/L (21.0-32.0); CREATININE 0.7 mg/dL (0.70-1.30); Calcium 8.9 mg/dL (8.5-10.1); Chloride 104 mmol/L (98-107); Glucose 92 mg/dL (74-106); Potassium 3.1 mmol/L (3.5-5.1); Sodium 140 mmol/L (136-145); Total Protein 6.9 g/dL (6.4-8.2)
[2021-06-10] MEDS: OLANZapine 5 MG TAB PO (07:48)
[2021-06-10] MEDS: Normal Saline Flush 10 ML SYR IVP ×3 (07:49→13:59)
[2021-06-10 08:30] LABS: Lab Add On Test DONE
--- NOTE | 2021-06-10 08:34 | W.PM.PROGNOT ---
Date of Service Date of service: 06/10/21 Time of Service: 08:34 Assessment and Plan Assessment and plan (1) Altered mental status: Status: Acute Assessment and plan: Physical exam this am is c/w catatonia. Obtain psychiatric evaluation. Consider benzodiazepine therapy. (2) Bipolar disorder: Status: Chronic Assessment and plan: As above - obtain psychiatry evaluation. It appears that the patient's latest psychiatric regimen was olanzapine rather than risperidone or lithium, though he stopped taking his medications. There is a report of a suicide attempt (vs ideation) of hanging 1 week prior to presentation. Mental health and psychiatric consultations ordered. Continue CPSO. (3) Lactic acidosis: Status: Resolved Assessment and plan: Etiology unclear. Did respond to IVF. No further workup is planned at this time. (4) Ambulatory dysfunction: Status: Acute Assessment and plan: C/s PT. (5) Urinary retention: Status: Acute Assessment and plan: Ensure no constipation. PVR/straight caths. If persists, would consider levin catheter. Await UA. (6) DVT prophylaxis: Status: Acute Assessment and plan: SC lovenox (7) Discharge planning issues: Status: Acute Assessment and plan: Full code Continues to require hospitalization. Continues to require CPSO. May require psychiatric stabilization upon hospitalization. Subjective Subjective Interval history since last seen: Remains lethargic, arousable, muttering - difficult to understand. Retaining urine overnight. No BM since hospitalization. Per stepfather (who talked to nursing), has episodes like this every time he stops taking medications. Wilman is not clearly answering my questions but does wake up to voice, opens his eyes slightly, attempts to mutter answers, follows basic commands like squeezing hands. Needs a 2 assist to get out of bed. Exam Narrative Exam Narrative: General: Somnolent appearing male, arousable to voice, following basic commands (open your eyes, squeeze my hand) HEENT: EOMI, MMM Heart: RRR, mildly tachycardic (105), no m/r/g Lungs: CTAB anteriorly Abdomen: soft, nontender, nondistended Extremities: no edema BLEs Objective Last Vital Signs Temp 36.5 C 06/10/21 04:07 Pulse 84 06/10/21 06:00 Resp 13 06/10/21 06:01 BP 136/85 06/10/21 06:00 Pulse Ox 97 04/06/22 04:07 Laboratory Results - last 24 hr 06/09/21 06/10/21 06/10/21 20:50 06:15 06:15 Sodium 140 Potassium 3.1 L Chloride 104 Carbon Dioxide 26.4 Anion Gap 9.6 BUN 7 Creatinine 0.7 Estimated GFR/1.73 m2 >= 60.00 Glucose 92 Calcium 8.9 Total Bilirubin 2.0 H AST 11 L ALT 19 Alkaline Phosphatase 59 Total Protein 6.9 Albumin 3.5 Urine Color Yellow Urine Clarity Cloudy Urine pH 6.5 Ur Specific [place] >= 1.030 H Urine Protein Negative Urine Ketones 80 H Urine Blood Moderate H Urine Nitrite Negative Urine Bilirubin Negative Urine Urobilinogen 1.0 H Ur Leukocyte Esterase Large H Urine RBC 20-50 H Urine WBC >50 H Ur Epithelial Cells Negative Urine Crystals Negative Urine Bacteria Many Urine Casts Negative Urine Mucus Negative Ur Culture Indicated? Yes Urine Glucose Negative Add-On Test Request DONE
[2021-06-10] MEDS: POTASSIUM CHLORIDE 20 MEQ/100 ML BAG 50 MEQ IVPB ×2 (08:44→12:03)
[2021-06-10] MEDS: Docusate Sodium 100 MG CAP PO ×2 (08:45→20:02)
[2021-06-10 08:50] LABS: Magnesium 2.1 mg/dL (1.8-2.4)
[2021-06-10] MEDS: Normal Saline 500 ML 50 ML UD (08:58)
[2021-06-10] MEDS: Enoxaparin 40 MG/0.4 ML SYR SC (09:05)
--- NOTE | 2021-06-10 09:06 | CMPROGNOTE_ITS ---
- If Service Date Differs Date of service: 06/10/21 Time of Service: 09:06 Care Management Progress Note S/O:Wilman was lying in bed with his eyes closed each time CM attempted to meet with him. Per staff, he has not been interacting verbally with anyone, or responds with one word answers. This morning Dr. Eid attempted to do a psychiatric consultation with Wilman via Telehealth but he did not engage. Wilman has not been screened by yet. Clinically, Wilman is improving. He was tachycardic and tachypneic on admission but currently his vital signs are stable. A: Wilman is a 30 year old young man admitted on with AMS P:Wilman continues to be monitored in the ICU. Anticipate once medically cleared, he will be evaluated by [facility] crisis screener to determine treatment plan.
--- NOTE | 2021-06-10 14:53 | IN_ITS ---
Date of service: 06/10/21 Time of Service: 14:53 PT Notes Visit Reasons: Altered Mental Status,Possible Drug OD Physical Therapy Inpatient Initial Evaluation Date: 06/10/2021 Referring Doctor: Nakia Ramos MD PT Orders: PT CONSULT: Limited ability Precautions: Altered mental status and impaired safety awareness. Fall. Standard. Activity as tolerated. Patient Profile/Admitting Diagnosis: Wilman is a 30-year-old male who was found by friends on the floor of his bedroom at home and was brought to the ED by EMS on 06/08/2021 with altered mental status and speech impairment. Patient is diagnosed with pneumonia, altered mental status, bipolar disorder, amatory dysfunction, and urinary retention. PMHX: All Active Problems? Altered mental status (Acute) Bipolar disorder (Chronic) Social History/Home Situation: Unable to extract reliable information from patient at this time Equipment Owned/DME: Unable to extract reliable information from patient at this time Subjective: Agreeable to being sat at edge of bed for this evalaution Objective: General Observation: Supine in bed. Repetitive rapid movement of eyelids, partially opens eyes to commands. Mild rigid posturing but is able to follow supine to sitting with tactile cueing and minimal support, no sustained abnormal posturing seen. CADRE in place, Nurse Abbey alvarzecthing over patient when PT came in for evalaution Mental Status: Alert and able to follow singel step commands. Responds with short phrases ti simple questions Pain: Flinched when R LE was assisted back into bde for sit to supine Vital Signs: [place] monitored by nursing staff ROM: Right Upper Extremity: Shoulder Flexion WFL. Shoulder abduction WFL. Elbow flexion WFL. Wrist flexion WFL. Functional opening and closing of hand WFL. Left Upper Extremity: Shoulder Flexion WFL. Shoulder abduction WFL. Elbow flexion WFL. Wrist flexion WFL. Functional opening and closing of hand WFL. Right Lower Extremity: Hip flexion WFL. Hip abduction WFL. Knee flexion WFL. Ankle dorsiflexion WFL. Ankle plantarflexion WFL. Left Lower Extremity: Hip flexion WFL. Hip abduction WFL. Knee flexion WFL. Ankle dorsiflexion WFL. Ankle plantarflexion WFL. Strength: Right Upper Extremity: Grossly 3/5 Left Upper Extremity: Grossly 3/5 Right Lower Extremity: Grossly 3/5 Left Lower Extremity: Grossly 3/5 Bed Mobility/Transfers: Rolling minimal assist Supine to sit with minimal assist Sit to supine with minimal assist Scoot up in bed moderate assist of PT and Nurse Brittney Gait: Unable to test at this time THERA EX: Partilally able to move B LE for seated exercises and B UE once he was repositioned back in supine with ttactile cueing. Balance: Static Sitting: Good Dynamic Sitting: Fair Static Standing: Unable to test Dynamic Standing: Unable to test Special Tests: Mobility Limitations Standardized Measure [facility] AM-PAC 6 clicks Basic Mobility Inpatient Short Form: Raw Score: 10 CMS Score: 77% deficit Informed Consent/Education: Patient was instructed in purpose of PT consult and plan of care. Agreeable to proceed with established PT POC to achieve personal goals. Assessment: Deferred getting out of bed due to safety reasons and delayed motor responses, will plan to further assessing patient tomorrow morning with assistance of nursing staff for safety. Mutism not so pronounced as patient is able to respond appropriately with 2-3 word phrases to simple questions regarding how he feels about exercising and bed mobility tasks. No negativism seen as patient complied with sitting up from supine with tactile cueing of PT. No sustained abnomal posturing seen, no waxy flexibility. No echolalia. Patient presents with clinical signs and symptoms consistent with current/admitting diagnoses that have resulted to mobility limitations, gait instability, generalized weakness, and overall ADL decline as demonstrated by the following impairment level findings: 1. Decreased strength to B UE/LE major muscle groups 2. Impaired sitting/standing balance 3. Impaired activity tolerance 4. Altered mental status Impairments are contributing to the following functional limitations: 1. Decline in bed mobility skills 2. Unsafe transfer skills 3. Difficulty with ambulation without assistive device and physical assistance 4. Increased completion time for mobility ADL performance 5. Increased risk for falls Patient is assessed as a 41747 high complexity based on the following: History: 30 [id number] male with past medical history as indicated above Examination: Demonstrable impairment in strength, balance, and mobility level with underlying impairments and functional limitations as exhibited above as well as deficit score of 77% utilizing the [facility] Mobility Inpatient Short Form Presentation: Unstable Decision Makin high complexity Goals: Goals X1 week 1. Supine-Sit independent 2. Sit-Supine independent 3. Sit-Stand independent 4. Stand-Sit independent with no AD 5. Bed-Chair independent with no AD no AD 6. Chair-Bed independent with 7. Independent gait on level surface with use of no AD for at least 300 feet without report of pain nor dyspnea 8. Independent stair negotiation while holding onto B rails for at least 5 steps without report of pain nor dyspnea Plan of Care/Treatment Plan: 1-2x/day, 7 days/week x 1 week. Plan of care has been reviewed with the [employer] POLL[employer] AUDITOR providing the service under Physical Therapy direction. Initiate Physical Therapy intervention for pain management as needed, strengthening, bed mobility, transfers, gait, stairs, balance training, and use of assistive device. DISCHARGE RECOMMENDATIONS: [] Home with no services [] [] Home with services [specify] [] Home with outpatient PT [] [X] SNF for continued rehabilitation. Patient will benefit from group home facility placement for continued skilled physical therapy services in order to progress mobility level, strength, and balance in preparation for a safe discharge to home. [] [facility] [] [] SNF versus LTC based on ability to participate and progress [] TREATMENT CODE/TIME: 9716 3 x 31 minutes beginning at 14:53 PM. Thank you for the opportunity to participate in the care of this patient. Marion Moore PT, DPT, CLT [facility] [place], [place]
--- NOTE | 2021-06-10 16:24 | W.NEUROCONSU ---
Date of service: 06/10/21 Time of Service: 16:24 Assessment and Plan Assessment and plan (1) Altered mental status: Status: Acute Assessment and plan: I was able to see Wilman today. Agree with primary team that symptoms seem most consistent with psychiatric illness. He will proceed with EEG tomorrow as further work-up. History of Present Illness History of Present Illness Chief Complaint: altered mental status Narrative: Handedness: ? Wilman has a reported history of Bipolar disorder. He was admitted 06/08/21 after being found down, tachypneic, tachycardic, minimally responsive, and with urinary retention. He has undergone the work-up as below. He remains minimally interactive. He apparently has not been taking his psychiatric medications and has had episodes similar to this in the past when off medications. He continues to have urinary retention. He has had recent suicidal ideation per history. Today, he is laying still on his bed. He will mumble answers to some of my questions with some delay - denies pain, has a playstation 4 but hasn't been playing it in awhile, can't remember what he ate today. When asked more pertinent questions to his medical care, he would not answer. He struggled with motor commands - could open his eyes with great difficulty, but wouldn't move his arms or legs on command. -Labs: W 11.62, Plt 431, Na 137, K 3.1, Cr 1.0, AG 20.2, HCO2 18.8, Tbili 3.1 with nml ASA/ALT, TSH 2.42, [place] neg. -CTH (06/08/21): unremarkable. I reviewed these images personally and this is my personal interpretation. Review of Systems All systems reviewed & are unremarkable except as noted in HPI and below PFSH All Active Problems (Updated 06/10/21 @ 08:38 by Nakia Ramos MD) Discharge planning issues (Acute) DVT prophylaxis (Acute) Urinary retention (Acute) Ambulatory dysfunction (Acute) Altered mental status (Acute) Bipolar disorder (Chronic) Social History Smoking/Tobacco Use Status: Never Smoking risk assessment performed?: Yes Alcohol Intake: never Drug use: Never Substance use type: does not use Do you feel safe at home: Yes Do you feel safe in your relationship?: Yes Visit Medication and Allergies Active Medications Generic Name Dose Route Start Last Admin Trade Name Freq PRN Reason Stop Dose Admin Bisacodyl 5 mg 06/10/21 08:21 Bisacodyl 5 Mg Tabec PO DAILY PRN PRN Dimethicone/Zinc Oxide 0 gm 06/08/21 23:13 Nataliya Protect Cream 142 Gm Tube TP PRN PRN Docusate Sodium 100 mg 06/10/21 08:30 06/10/21 08:45 Docusate Sodium 100 Mg Cap PO 100 mg BID NE Administration Enoxaparin Sodium 40 mg 06/10/21 10:00 06/10/21 09:05 Enoxaparin 40 Mg/0.4 Ml Syr SC 40 mg Q24H NE Administration Sodium Chloride 500 mls @ 0 mls/hr 06/10/21 08:47 06/10/21 08:58 Saline 500ml Bag UD 50 mls/hr PRN PRN Administration As Directed IV Miscellaneous Supplies 1 each 06/08/21 20:45 Iv Access IV DIRECTED NE Olanzapine 5 mg 06/09/21 20:00 06/10/21 07:48 Olanzapine 5 Mg Tab PO 5 mg BID NE Administration Sodium Chloride 0 ml 06/08/21 20:32 06/10/21 13:59 Normal Saline Flush 10 Ml Syr IVP 10 ml PRN PRN Administration Allergies No Known Allergies Allergy (Unverified 05/20/17 16:14) Exam Narrative Exam Narrative: Physical Exam: Constitutional: Patient of apparent stated age, well nourished, well developed, no acute distress Neck: Supple, no meningismus CV: RRR, S1, S2, no murmur Resp: CTAB Abd: Soft, nontender, nondistended Neuro: MS/Language/Speech: ?somnolent, oriented to self, moderate dysarthria - mumbling; able to follow commands CN: PERRL, EOMI, visual soto appear full, trigeminal sensation appears intact, no facial asymmetry, hearing intact Motor: Normal bulk and tone. No spontaneous movements. Has waxy flexibility - I bent arm in upright position and he left it in that position for a few seconds and then it slowly lowered. Sensation: sensation appears intact Reflexes: 2+ DTRs, downgoing toes Coordination: no ataxia Gait: not able to test at this time due to his condition Results Last Vital Signs Temp 97.9 F 06/10/21 15:30 Pulse 99 H 06/10/21 15:35 Resp 11 L 06/10/21 15:30 BP 136/78 06/10/21 15:35 Pulse Ox 96 06/10/21 15:30 Labs Result diagrams: 06/08/21 20:40 06/10/21 06:15 Labs: Laboratory Results - last 24 hr 06/09/21 06/10/21 06/10/21 20:50 06:15 06:15 Sodium 140 Potassium 3.1 L Chloride 104 Carbon Dioxide 26.4 Anion Gap 9.6 BUN 7 Creatinine 0.7 Estimated GFR/1.73 m2 >= 60.00 Glucose 92 Calcium 8.9 Magnesium Total Bilirubin 2.0 H AST 11 L ALT 19 Alkaline Phosphatase 59 Total Protein 6.9 Albumin 3.5 Urine Color Yellow Urine Clarity Cloudy Urine pH 6.5 Ur Specific [place] >= 1.030 H Urine Protein Negative Urine Ketones 80 H Urine Blood Moderate H Urine Nitrite Negative Urine Bilirubin Negative Urine Urobilinogen 1.0 H Ur Leukocyte Esterase Large H Urine RBC 20-50 H Urine WBC >50 H Ur Epithelial Cells Negative Urine Crystals Negative Urine Bacteria Many Urine Casts Negative Urine Mucus Negative Ur Culture Indicated? Yes Urine Glucose Negative Add-On Test Request DONE 06/10/21 06:15 Sodium Potassium Chloride Carbon Dioxide Anion Gap BUN Creatinine Estimated GFR/1.73 m2 Glucose Calcium Magnesium 2.1 Total Bilirubin AST ALT Alkaline Phosphatase Total Protein Albumin Urine Color Urine Clarity Urine pH Ur Specific [place] Urine Protein Urine Ketones Urine Blood Urine Nitrite Urine Bilirubin Urine Urobilinogen Ur Leukocyte Esterase Urine RBC Urine WBC Ur Epithelial Cells Urine Crystals Urine Bacteria Urine Casts Urine Mucus Ur Culture Indicated? Urine Glucose Add-On Test Request
[2021-06-10] MEDS: Lidocaine 2% Jelly 6 ML SYR (16:56)
[2021-06-10] MEDS: Bisacodyl 5 MG TABEC PO (18:41)
[2021-06-10 18:56] LABS: Bilirubin Small (Negative); Blood Small (Negative); Clarity Cloudy (Clear); Glucose Negative (Negative); Ketones 80 mg/dL (Negative); Leukocyte Esterase Moderate (Negative); Nitrite Negative (Negative); Specific Gravity 1.025 (1.005-1.025)
[2021-06-10 19:42] LABS: Bacteria Moderate HPF (Negative); C & S Indicated? Yes; Casts Negative LPF (Negative); Epithelial Cells Few HPF (Negative); Mucus Moderate (Negative); WBC 20-50 HPF (0-5)
[2021-06-10 19:47] LABS: Procalcitonin < 0.1 ng/mL
[2021-06-10] MEDS: VANCOMYCIN/WATER (PEG) 1.5 GM/300 ML BAG IVPB (20:00)
--- NOTE | 2021-06-10 21:05 | NUR.NOTE ---
Nursing Note: At approx 16:15 bladder scanned patient for 390-480cc. Explained to patient that he had urine in his bladder and if he could not void, the doctor had ordered a straight cath. When asked if he would like to try to pee, patient said yes. Patient assisted to sit up in bed with urinal in place, warm washcloth placed and water run in room to encourage urination. Patient tried very hard to urinate and kept saying yes when asked if he needed more time. At approx 16:45 discontinued attempts to pee and attempted to straight cath. Encountered some resistance trying to get around prostate and then once cathed very thick, milky, sedimentous urine began draining. Patient had been straight cathed several times in past 24 hours. This RN notified MD of findings, received orders to keep catheter in place as well as order for blood cultures and new abx orders for UTI.
[2021-06-11 00:10] VITALS: BP 123/71; PULSE 97; RESP 17; TEMP 36.4; O2SAT 99
[2021-06-11 06:35] LABS: Lactate 0.6 mmol/L (0.6-1.4)
[2021-06-11 06:55] LABS: ALT 15 U/L (16-63); AST 10 U/L (15-37); Albumin 3.5 g/dL (3.4-5.0); Alkaline Phosphatase 59 U/L (46-116); Anion Gap 8.6 mmol/L (3-11); BUN 10 mg/dL (7-18); Bilirubin, Direct 0.3 mg/dL (0.0-0.2); Bilirubin, Total 1.8 mg/dL (0.2-1.0); CO2 26.4 mmol/L (21.0-32.0); CREATININE 0.8 mg/dL (0.70-1.30); Chloride 104 mmol/L (98-107); Glucose 98 mg/dL (74-106); Magnesium 2.2 mg/dL (1.8-2.4); Potassium 3.5 mmol/L (3.5-5.1); Sodium 139 mmol/L (136-145); Total Protein 6.8 g/dL (6.4-8.2)
[2021-06-11 07:31] LABS: Abs Immature Grans 0.02 10^3/uL (0.0-0.06); Absolute Basophil Count 0.04 10^3/uL (0.0-0.2); Absolute Eosinophil Count 0.04 10^3/uL (0.0-0.7); Absolute Lymphocyte Count 1.56 10^3/uL (1.2-3.4); Absolute Monocyte Count 0.48 10^3/uL (0.1-0.8); Absolute Neutrophil Count 4.41 10^3/uL (1.2-6.7); Basophils % 0.6; Eosinophils % 0.6; HCT 40.5 % (40.0-50.0); Immature Grans % 0.3; Lymphocytes % 23.8; MCH 31.5 pg (27.0-33.0); MCHC 34.8 % (32.0-36.0); MCV 90.6 fL (80-95); MPV 11.4 fL (8.0-11.0); Monocytes % 7.3; Neutrophils % 67.4; Nucleated RBC 0 %; RBC 4.47 10^6/uL (4.36-5.78); RDW-SD 39.8 fL; WBC 6.55 10^3/uL (4.4-10.8)
[2021-06-11 07:38] LABS: HGB 14.1 g/dL (13.5-17.5)
[2021-06-11 07:39] LABS: Platelet Count 248 10^3/uL (130-400)
--- NOTE | 2021-06-11 08:41 | PGE_ITS ---
Date of Service Date of service: 06/11/21 Time of Service: 08:41 Assessment and Plan Assessment and plan (1) Altered mental status: Status: Acute Assessment and plan: While catatonia is still the most likely diagnosis, purulent urine growing Enterococcus is c/w UTI, and this could also be contributing to encephalopathy. Blood cultures are pending. Physical exam this am is still most c/w catatonia. EEG pending today. If negative, Consider benzodiazepine therapy. (2) Enterococcus UTI: Status: Acute Assessment and plan: Started on vancomycin. In setting of urinary retention - s/p levin. Await CT abdomen/pelvis. Consider urology c/s. Await blood culture results, urine C&S sensitivities. Continue empiric vancomycin. (3) Bipolar disorder: Status: Chronic Assessment and plan: As above - stopped taking his medications. We are holding antipsychotic medications at this time as they could potentially contribute to current mental status. There is a report of a suicide attempt (vs ideation) of hanging 1 week prior to presentation. Mental health and psychiatric consultations ordered. Continue CPSO. (4) Lactic acidosis: Status: Resolved Assessment and plan: Etiology unclear. Did respond to IVF. I am noticing elevated bilis on bloodwork today, though the remainder of LFts are fine. As the patient has a UTI, he needs abdominal imaging, which will also answer questions about the liver. (5) Urinary retention: Status: Acute Assessment and plan: Ensure no constipation. PVR/straight caths. If persists, would consider levin catheter. Await UA. (6) Ambulatory dysfunction: Status: Acute Assessment and plan: PT consulted. (7) DVT prophylaxis: Status: Acute Assessment and plan: SC lovenox (8) Discharge planning issues: Status: Acute Assessment and plan: Full code Continues to require hospitalization. Continues to require CPSO. May require psychiatric stabilization upon hospitalization. Subjective Subjective Interval history since last seen: Mr Mackay is not acting significantly differently today. He is not able to clearly answer my questions - I cannot interpret his muttering. Yesterday, a levin catheter had to be placed as the patient continued to retain urine and was found to have purulent urine when levin was indeed inserted. His urine culture grew enterococcus, sensitivities pending. Still no BM. Evening nurse was concerned about abdominal tenderness. Exam Narrative Exam Narrative: General: Somnolent appearing male, arousable to voice, following basic commands, but muttering answers to my questions that I cannot interpret, mildly diaphoretic HEENT: EOMI, MMM Heart: RRR, mildly tachycardic, no m/r/g Lungs: CTAB Abdomen: soft, ?mildly tender in epigastrium, + BS Extremities: no edema BLEs Objective Last Vital Signs Temp 36.4 C L 06/11/21 00:10 Pulse 97 H 06/11/21 00:10 Resp 17 06/11/21 00:10 BP 123/71 06/11/21 00:10 Pulse Ox 99 06/11/21 00:10 Laboratory Results - last 24 hr 06/10/21 06/10/21 06/10/21 06:15 16:22 17:30 WBC RBC Hgb Hct MCV MCH MCHC RDW Plt Count MPV Immature Gran % Neutrophils % Lymphocytes % Monocytes % Eosinophils % Basophils % Nucleated RBC % Absolute Neutrophils Absolute Lymphocytes Absolute Monocytes Absolute Eosinophils Absolute Basophils VBG Lactate Sodium Potassium Chloride Carbon Dioxide Anion Gap BUN Creatinine Estimated GFR/1.73 m2 Glucose Calcium Magnesium 2.1 Total Bilirubin Conjugated Bilirubin AST ALT Alkaline Phosphatase Total Protein Albumin Procalcitonin < 0.1 Urine Color Yellow Urine Clarity Cloudy Urine pH 7.0 Ur Specific [place] 1.025 Urine Protein Negative Urine Ketones 80 H Urine Blood Small H Urine Nitrite Negative Urine Bilirubin Small H Urine Urobilinogen 4.0 H Ur Leukocyte Esterase Moderate H Urine RBC 5-10 H Urine WBC 20-50 H Ur Epithelial Cells Few Urine Crystals Urine Bacteria Moderate Urine Casts Negative Urine Mucus Moderate Ur Culture Indicated? Yes Urine Glucose Negative 06/11/21 06/11/21 06/11/21 06:26 06:26 06:26 WBC 6.55 RBC 4.47 Hgb 14.1 D Hct 40.5 MCV 90.6 MCH 31.5 MCHC 34.8 RDW 12.0 Plt Count 248 D MPV 11.4 H Immature Gran % 0.3 Neutrophils % 67.4 Lymphocytes % 23.8 Monocytes % 7.3 Eosinophils % 0.6 Basophils % 0.6 Nucleated RBC % 0 Absolute Neutrophils 4.41 Absolute Lymphocytes 1.56 Absolute Monocytes 0.48 Absolute Eosinophils 0.04 Absolute Basophils 0.04 VBG Lactate 0.6 Sodium 139 Potassium 3.5 Chloride 104 Carbon Dioxide 26.4 Anion Gap 8.6 BUN 10 Creatinine 0.8 Estimated GFR/1.73 m2 >= 60.00 Glucose 98 Calcium 9.0 Magnesium 2.2 Total Bilirubin 1.8 H Conjugated Bilirubin 0.3 H AST 10 L ALT 15 L Alkaline Phosphatase 59 Total Protein 6.8 Albumin 3.5 Procalcitonin Urine Color Urine Clarity Urine pH Ur Specific [place] Urine Protein Urine Ketones Urine Blood Urine Nitrite Urine Bilirubin Urine Urobilinogen Ur Leukocyte Esterase Urine RBC Urine WBC Ur Epithelial Cells Urine Crystals Urine Bacteria Urine Casts Urine Mucus Ur Culture Indicated? Urine Glucose
--- NOTE | 2021-06-11 08:45 | PDOC.CMPRO ---
- If Service Date Differs Date of service: 06/11/21 Time of Service: 08:45 Care Management Progress Note S/O: Per PT: Held morning PT session per nursing, as patient is nauseous and awaiting abdominal CT scan. Patient not available for afternoon PT session as he was engaged in EEG testing. Per nursing, patient is likely not appropriate today due to mentation.Wilman has not been screened by yet either, due to medical clearance. Clinically, Wilman is improving and his vital signs are stable. He has significant psychomotor impairment at this time, and his movements and words are very slow; yesterday he was only able to open his eyes; not move his limbs which is a decline from the previous day. Per Nursing, Wilman expressed not wanting his family to be updated or involved in his care at this time; his wishes will be honored. A: Wilman is a 30 year old young man admitted on with AMS P: Wilman continues to be monitored in the ICU. Anticipate once medically cleared, he will be evaluated by [facility] crisis screener to determine treatment plan.
[2021-06-11] MEDS: Enoxaparin 40 MG/0.4 ML SYR SC (09:06)
[2021-06-11] MEDS: Lactated Ringers 1,000 ML 75 ML IV (09:07)
[2021-06-11] MEDS: Normal Saline Flush 10 ML SYR IVP ×6 (09:09→17:03)
[2021-06-11] MEDS: VANCOMYCIN/WATER (PEG) 1.5 GM/300 ML BAG IVPB (09:15)
[2021-06-11 09:20] VITALS: O2SAT 95
[2021-06-11 09:21] VITALS: BP 122/71; PULSE 100
[2021-06-11 09:23] LABS: Ammonia < 10 umol/L (11-32)
[2021-06-11] MEDS: Ondansetron 4 MG/2 ML VIAL IVP ×2 (09:58→15:04)
--- NOTE | 2021-06-11 10:31 | DI.CT_ITS ---
Exam(s) CT ABDOMEN PELVIS W EXAM: CT ABDOMEN PELVIS W CLINICAL HISTORY: abdominal pain, UTI. TECHNIQUE: Imaging Protocol: Axial computed tomography images with coronal and sagittal reformatted images were created and reviewed CONTRAST MATERIAL: Intravenous: Omnipaque 350 Contrast volume:100 mL Oral: No COMPARISON: No exams were available for comparison FINDINGS: The examination is limited due to patient motion artifact. ABDOMEN: Lung Bases: Atelectasis in the dependent portions of the lungs. Liver: Normal density. No measurable mass. Portal, Superior Mesenteric, and Splenic Veins: Unremarkable. Gallbladder and Biliary Tract: No radiodense calculus or dilation. Pancreas: Normal density, no abnormal calcifications or inflammatory process. Spleen: Normal. Adrenals: No masses seen. Kidneys: Normal size, contour and axis. No radiodense stones or obstructive uropathy. No masses seen. Abdominal Aorta: Abdominal portion non-dilated. Bowel: No obstruction or bowel wall thickening. Appendix is unremarkable. Peritoneal Cavity: No ascites, collection or mesenteric inflammatory response. No free air. Lymph Nodes: Within normal limits. Bones: Within normal limits for the patient's age. Soft Tissues: There is a small fat containing umbilical hernia. PELVIS: Bladder: The bladder is not distended. There is a Castro catheter in place. There is diffuse thicken ing of the wall of the urinary bladder. Reproductive Organs: Unremarkable as visualized. Lymph Nodes: Within normal limits. Bones: Within normal limits for the patient's age. IMPRESSION: The urinary bladder is not distended. There is a Castro catheter in place. There is diffuse thickeni ng of the wall of the urinary bladder. This may be due in part to the underdistention however, infec tion/inflammation should also be considered. RADIATION DOSE DELIVERED: 1,749.56mGy.cm Total DLP DATA REPOSITORY: All CT scans at this facility are submitted to the National Radiology Data Registry (NRDR) Dose Index Registry (DIR) with the [employer] (ACR). RADIATION OPTIMIZATION: All CT scans at this facility use at least one of these dose optimization te chniques: automated exposure control; mA and/or kV adjustment per patient size (includes targeted exa ms where dose is matched to clinical indication); or iterative reconstruction.
[2021-06-11] MEDS: Omnipaque 350 MG/ML 100 ML BTL IJ (10:32)
[2021-06-11 14:28] VITALS: O2SAT 96
[2021-06-11] MEDS: LORazepam 2 MG/ML VIAL 1 MG IVP ×2 (14:53→17:02)
--- NOTE | 2021-06-11 15:05 | PDOC.EEG_ITS ---
Neurology EEG EEG: [facility] Department of Neurology INPATIENT EEG REPORT Date of Recordin06/11/21 Interpreting Physician: Dr. Jihan Quesada Reason for study: Mr. Mackya is a 30 year-old man admitted with altered mental status/behavior with concerns for seizure/encephalopathy. Current Medications: Current Medications Bisacodyl (Bisacodyl 5 Mg Tabec) 5 mg PO DAILY PRN PRN Last Admin: 06/10/21 18:41 Dose: 5 mg Dimethicone/Zinc Oxide (Nataliya Protect Cream 142 Gm Tube) 0 gm TP PRN PRN Docusate Sodium (Docusate Sodium 100 Mg Cap) 100 mg PO BID NE Last Admin: 06/11/21 09:30 Dose: Not Given Enoxaparin Sodium (Enoxaparin 40 Mg/0.4 Ml Syr) 40 mg SC Q24H NE Last Admin: 06/11/21 09:06 Dose: 40 mg Sodium Chloride (Saline 500ml Bag) 500 mls @ 0 mls/hr UD PRN PRN Last Admin: 06/10/21 08:58 Dose: 50 mls/hr Vancomycin/PEG/[place]/Lysine/Water (Vancocin Injection) 1.5 gm in 300 mls @ 200 mls/hr IV Q8H NE; Protocol Ringer's Solution () 1,000 mls @ 75 mls/hr IV INFUSION ON LICENSE OF [facility] Last Infusion: 06/11/21 10:43 Dose: 75 mls/hr IV Miscellaneous Supplies (Iv Access) 1 each IV DIRECTED NE Olanzapine (Olanzapine 5 Mg Tab) 5 mg PO BID NE Last Admin: 06/10/21 07:48 Dose: 5 mg Ondansetron HCl (Ondansetron 4 Mg/2 Ml Vial) 4 mg IVP Q6H PRN PRN Last Admin: 06/11/21 09:58 Dose: 4 mg Sodium Chloride (Normal Saline Flush 10 Ml Syr) 0 ml IVP PRN PRN Last Admin: 06/11/21 14:53 Dose: 20 ml METHODS: A 21 channel digitized electroencephalogram was performed in the [facility] Med/Surg Floor or ICU. The 10/20 international system of electrode placement was used and bipolar and referential electrode montages were recorded. In addition to EEG the patient was monitored for EKG and lateral/vertical eye movements. Activation procedures of photic stimulation and hyperventilation were performed if applicable. Video was used during activation procedures and during events where applicable. The duration of the recording was 30 minutes. DESCRIPTION OF EEG: The patient was noted to be awake and drowsy during the recording. During maximal wakefulness a 9.5-10 Hz posterior background rhythm was present which was well-modulated, symmetrical, reactive to eye opening, and of moderate voltage. With eye opening the background activity changed to a low voltage mixture of alpha, beta, and occasional theta range frequencies. Faster frequencies were present in the bilateral anterior head regions. There was a normal anterior-posterior voltage gradient. No drowsiness or stage II sleep was recorded. Activating Procedures: Photic stimulation was attempted but stopped early due to patient request. Hyperventilation was not performed due to patient inability to participate. EKG: EKG revealed normal sinus rhythm. INTERPRETATION: This EEG is normal during the awake state. PRIOR EEG: none CLINICAL CORRELATION: No focal regions of cerebral dysfunction or epileptiform activity was present. No evidence of encephalopathy. Clinical correlation is advised. Jihan Quesada MD
[2021-06-11 15:15] VITALS: TEMP 36.6
[2021-06-11] MEDS: VANCOMYCIN/WATER (PEG) 1.5 GM/300 ML BAG IV (15:48)
--- NOTE | 2021-06-11 15:52 | PT.INNT ---
Date of service: 06/11/21 Time of Service: 15:53 PT Notes Visit Reasons: Altered Mental Status,Possible Drug OD 06/11/2021 Held morning PT session per nursing, as patient is nauseous and awaiting abdominal CT scan. Patient not available for afternoon PT session as he was engaged in EEG testing. Per nursing, patient is likely not appropriate today due to mentation. Will attempt to resume PT services tomorrow morning.
[2021-06-11] MEDS: Milk of Magnesia 30 ML CUP PO (17:02)
[2021-06-11] MEDS: LORazepam 1 MG TAB PO (19:46)
[2021-06-12 00:20] VITALS: BP 123/83; PULSE 103; RESP 18; TEMP 36.6; O2SAT 97
[2021-06-12] MEDS: VANCOMYCIN/WATER (PEG) 1.5 GM/300 ML BAG IV (00:31)
[2021-06-12] MEDS: Lactated Ringers 1,000 ML 75 ML IV (00:32)
[2021-06-12 07:10] LABS: Abs Immature Grans 0.04 10^3/uL (0.0-0.06); Absolute Basophil Count 0.04 10^3/uL (0.0-0.2); Absolute Eosinophil Count 0.08 10^3/uL (0.0-0.7); Absolute Lymphocyte Count 1.42 10^3/uL (1.2-3.4); Absolute Monocyte Count 0.47 10^3/uL (0.1-0.8); Basophils % 0.7; Eosinophils % 1.5; HCT 38.7 % (40.0-50.0); HGB 13.4 g/dL (13.5-17.5); Immature Grans % 0.7; Lymphocytes % 26.5; MCH 31.2 pg (27.0-33.0); MCHC 34.6 % (32.0-36.0); MPV 10.9 fL (8.0-11.0); Monocytes % 8.8; Neutrophils % 61.8; Nucleated RBC 0 %; Platelet Count 245 10^3/uL (130-400); RDW-SD 39.4 fL; WBC 5.35 10^3/uL (4.4-10.8)
[2021-06-12 07:22] LABS: ALT 18 U/L (16-63); AST 14 U/L (15-37); Albumin 3.5 g/dL (3.4-5.0); Alkaline Phosphatase 56 U/L (46-116); Anion Gap 6.4 mmol/L (3-11); BUN 6 mg/dL (7-18); Bilirubin, Direct 0.2 mg/dL (0.0-0.2); Bilirubin, Total 1.2 mg/dL (0.2-1.0); CO2 27.6 mmol/L (21.0-32.0); CREATININE 0.7 mg/dL (0.70-1.30); Calcium 8.7 mg/dL (8.5-10.1); Chloride 102 mmol/L (98-107); Glucose 115 mg/dL (74-106); Magnesium 2.3 mg/dL (1.8-2.4); Potassium 3.5 mmol/L (3.5-5.1); Sodium 136 mmol/L (136-145); Total Protein 6.8 g/dL (6.4-8.2)
[2021-06-12 07:49] LABS: Vancomycin, Trough 21.9 ug/mL (10.0-20.0)
[2021-06-12 08:02] VITALS: BP 129/82; PULSE 85; RESP 20; TEMP 36.6; O2SAT 95
[2021-06-12] MEDS: Enoxaparin 40 MG/0.4 ML SYR SC (09:23)
[2021-06-12] MEDS: Normal Saline Flush 10 ML SYR IVP (09:24)
[2021-06-12] MEDS: Docusate Sodium 100 MG CAP PO ×2 (09:26→19:49)
[2021-06-12] MEDS: LORazepam 1 MG TAB PO ×4 (09:26→19:50)
--- NOTE | 2021-06-12 10:12 | CMPROGNOTE_ITS ---
- If Service Date Differs Date of service: 06/12/21 Time of Service: 10:13 Care Management Progress Note S/O: Wilman has shown marked improvement, especially in verbal communication. Per MD, he is medically cleared for [facility] screening as he is now only on orals for UTI. CM coordinated Tele-Health NK screen with [facility]. Per Nursing, Wilman expressed not wanting his family to be updated or involved in his care at this time; his wishes will be honored. [facility] cleared Wilman from requiring psychiatric stabilization. She coordinated a medication appointment with LUCIA on 06/15/21@1130 with Alona Antoine APRN. As well, he was referred to [facility] Case Management. He also met with Birgit peck BRIAN yesterday for insurance navigation support. A: Wilman is a 30 year old young man admitted on 06/09/21 with AMS P: Wilman transferred to Med/Surg floor and was evaluated by Cindi this morning, who cleared him to return to the community. Per provider, anticipate Wilman will discharge home this weekend, with outpatient follow up with community providers including his PCP, [facility], and [facility]. He will transport via private vehicle with a friend.
[2021-06-12] MEDS: Ciprofloxacin 500 MG TAB PO ×2 (11:16→19:50)
[2021-06-12] MEDS: Polyethylene Glycol 3350 17 GM PACKET PO ×2 (12:30→19:49)
--- NOTE | 2021-06-12 12:37 | PT.INTREAT ---
Date of service: 06/12/21 Time of Service: 10:48 PT Notes Visit Reasons: Altered Mental Status,Possible Drug OD Inpatient Physical Therapy Treatment Note [facility] Date: 06/12/2021 PRECAUTIONS: Activity as tolerated, fall, impaired safety awareness SUBJECTIVE: Vincent is agreeable to participating in PT, although states that he is feeling worse than he was this morning. He reports that he has not walked much or been out of bed much since being admitted. He states that he felt delirious prior to this hospitalization which caused him to feel unsteady with ambulation. OBJECTIVE: PAIN: Patient c/o pain at Castro catheter insertion site with gait training BED MOBILITY/TRANSFERS Supine-sit: S Sit-supine: S Sit-stand: CGA Stand-sit: CGA in a.m.; SBA in p.m. GAIT Assistive Device: No AD Weight bearing: Full Assist: CGA + SBA in a.m.; CGA-SBA in p.m. Distance: 20' x2 in a.m.; 150' in p.m. Deviation: Unsteady, slow pace, decreased step height and length, patient refused use of FWW in a.m.; slightly improved gait mechanics, improved stability. ASSESSMENT: Patient tolerated session with c/o pain at Castro catheter site with gait training. He demonstrates unsteady gait and pacing and would benefit from use of FWW support for safety and increased stability, although refuses, demonstrating decreased step height and length. PLAN: Continue with gait and transfer training for improved mobility, as tolerated. TREATMENT CODE/TIME: Session 1: 17 minutes; 72953 (10:48) Session 2: 10 minutes; [id number] (14:51)
--- NOTE | 2021-06-12 15:08 | W.PM.PROGNOT ---
Date of Service Date of service: 06/12/21 Time of Service: 10:30 Assessment and Plan Assessment and plan (1) Altered mental status: Start date: 06/12/21 Start time: 15:24 Status: Resolved Assessment and plan: Sitting up in bed. Answering questions appropriately mumbled at first, then however he did speak in clear sentences. Cleared by MH Ready for discharge tomorrow (2) Enterococcus UTI: Start date: 06/12/21 Start time: 15:24 Status: Acute Assessment and plan: He is AAO can be switched to oral For this reason switched to cipro. Will need to be treated like a complicated UTI (3) Bipolar disorder: Start date: 06/12/21 Start time: 15:24 Status: Chronic Assessment and plan: MH has cleared patient he will be discharged home tomorrow. (4) Lactic acidosis: Start date: 06/12/21 Start time: 15:26 Status: Resolved Assessment and plan: Resolved (5) Urinary retention: Start date: 06/12/21 Start time: 15:26 Status: Resolved Assessment and plan: Resolved. Patient was constipated. Large BM yesterday. (6) Ambulatory dysfunction: Start date: 06/12/21 Start time: 15:27 Status: Acute Assessment and plan: PT consulted. Had trouble with levin, has since been removed. (7) DVT prophylaxis: Start date: 06/12/21 Start time: 15:28 Status: Acute Assessment and plan: SC lovenox (8) Discharge planning issues: Start date: 06/12/21 Start time: 15:28 Status: Acute Assessment and plan: Full code Possible discharge tomorrow Cleared by Discussed with Dr. Ramos Subjective Subjective Patient reports: feels better Interval history since last seen: Patient sitting up in bed with 1:1 CPSO in room next to bed. Patient avoids eye contact but answers questions. Does not let me evaluate him with stethescope but allows evaluation of LLQ abd pain. Pain with palpation. He states he feels every time he feels he is in the right place he goes the wrong way when asked if feeling suicidal. He had large BM yesterday, d/t being more alert, having BM and conversing, will d/c levin, and switch to oral medications. Patient, also met with and they feel he can be cleared. He has voided and will likely be discharged tomorrow. He denies self harm at this time. Exam Narrative Exam Narrative: LLQ and mid LQ tender with palpation. Does not appear SOB, sitting up NAD. visible skin c/d/i. Hair is combed neatly back. Does not make eye contact when speaking. However does mumble at first then speaks in clear sentences. Objective Last Vital Signs Temp 36.6 C 06/12/21 08:02 Pulse 85 06/12/21 08:02 Resp 20 06/12/21 08:02 BP 129/82 06/12/21 08:02 Pulse Ox 95 06/12/21 08:02 Laboratory Results - last 24 hr 06/12/21 06/12/21 06/12/21 06:45 06:45 06:45 WBC 5.35 RBC 4.30 L Hgb 13.4 L Hct 38.7 L MCV 90.0 MCH 31.2 MCHC 34.6 RDW 12.0 Plt Count 245 MPV 10.9 Immature Gran % 0.7 Neutrophils % 61.8 Lymphocytes % 26.5 Monocytes % 8.8 Eosinophils % 1.5 Basophils % 0.7 Nucleated RBC % 0 Absolute Neutrophils 3.30 Absolute Lymphocytes 1.42 Absolute Monocytes 0.47 Absolute Eosinophils 0.08 Absolute Basophils 0.04 Sodium 136 Potassium 3.5 Chloride 102 Carbon Dioxide 27.6 Anion Gap 6.4 BUN 6 L Creatinine 0.7 Estimated GFR/1.73 m2 >= 60.00 Glucose 115 H Calcium 8.7 Magnesium 2.3 Total Bilirubin 1.2 H Conjugated Bilirubin 0.2 AST 14 L ALT 18 Alkaline Phosphatase 56 Total Protein 6.8 Albumin 3.5 Vancomycin Trough 21.9 H*
[2021-06-12 16:05] VITALS: BP 139/91; PULSE 110; RESP 16; TEMP 36.8; O2SAT 96
--- NOTE | 2021-06-12 18:21 | W.INMHPGNOTE ---
Date of service: 06/12/21 Time of Service: 18:21 Mental Health Crisis Note Presenting Issue How did you arrive at the ED and why did you come: Pt arrived via [facility] on 06.08.2021 due to Pt seemed off and not able to anser questions upon arrival. Pt had an altered mental status. Precipitating Factors Pt denied SI and HI. He has not engaged in NSSI since 4 years ago when he snuffed out a cigarette butt on his hand. There are no signs of delusions. Disposition BEHAVIOR: Pt is cooperative and engaged with the assessment however, response times are significantly slower than average. He has fair insight and judgment. Pt is somewhat futuristic however, expresses he has not been able to think clearly so this is a struggle. EYE CONTACT: fair MOOD: Depressed and anxious over the past two weeks. AFFECT: Not necessarily blunted but slow to respond and process information. APPETITE: poor SLEEP(trouble falling/staying asleep: poor Plan Pt was set up with his med provider at [facility] for Tuesday at 11:30am in person. He will be referred to [facility] case management and a DHARA was signed for [facility] to ensure he gets all of the support and services he needs. Pt is not SI or HI so does not meet criteria of hospital level of care at this time although he does need some more time in the hospital to allow his meds to get in his system so he is not so slow to process and respond and so he can care for himself upon returning home. . Signature Clinician's Name/Title: Jenna Carey MS, [facility], [facility]
[2021-06-13 03:41] VITALS: BP 137/86; PULSE 99; RESP 16; TEMP 36.2; O2SAT 97
[2021-06-13 07:39] LABS: Abs Immature Grans 0.04 10^3/uL (0.0-0.06); Absolute Basophil Count 0.03 10^3/uL (0.0-0.2); Absolute Eosinophil Count 0.09 10^3/uL (0.0-0.7); Absolute Lymphocyte Count 1.46 10^3/uL (1.2-3.4); Absolute Monocyte Count 0.44 10^3/uL (0.1-0.8); Absolute Neutrophil Count 2.91 10^3/uL (1.2-6.7); Basophils % 0.6; Eosinophils % 1.8; HGB 13.7 g/dL (13.5-17.5); Immature Grans % 0.8; Lymphocytes % 29.4; MCH 30.6 pg (27.0-33.0); MCHC 35.1 % (32.0-36.0); MCV 87.2 fL (80-95); MPV 11.2 fL (8.0-11.0); Monocytes % 8.9; Neutrophils % 58.5; Nucleated RBC 0 %; Platelet Count 270 10^3/uL (130-400); RBC 4.47 10^6/uL (4.36-5.78); RDW 11.9 % (11.8-14.1); RDW-SD 38.4 fL; WBC 4.97 10^3/uL (4.4-10.8)
[2021-06-13 07:44] VITALS: BP 123/86; PULSE 102; RESP 18; TEMP 36.6; O2SAT 97
[2021-06-13 08:14] LABS: ALT 15 U/L (16-63); AST 14 U/L (15-37); Albumin 3.7 g/dL (3.4-5.0); Alkaline Phosphatase 59 U/L (46-116); Anion Gap 10.3 mmol/L (3-11); BUN 8 mg/dL (7-18); Bilirubin, Total 0.8 mg/dL (0.2-1.0); CO2 25.7 mmol/L (21.0-32.0); CREATININE 0.6 mg/dL (0.70-1.30); Calcium 8.9 mg/dL (8.5-10.1); Chloride 104 mmol/L (98-107); Glucose 109 mg/dL (74-106); Magnesium 2.4 mg/dL (1.8-2.4); Potassium 3.8 mmol/L (3.5-5.1); Sodium 140 mmol/L (136-145); Total Protein 7.3 g/dL (6.4-8.2)
[2021-06-13] MEDS: LORazepam 1 MG TAB PO ×3 (11:44→20:18)
--- NOTE | 2021-06-13 13:05 | NT_ITS ---
PT Notes Visit Reasons: Altered Mental Status,Possible Drug OD Vincent refused PT, but unable to tell me why. He sits in recliner with legs cr ossed and picking at fuzz on pants. He would not look at me. Would not answer many questions for me. He did mention something about not understanding why his room was changed. He got really upset and began to cry, but not willing to tell me what was upsetting him. Nurse made aware and she went in with him. I will check in with him tomorrow.
[2021-06-13] MEDS: Normal Saline Flush 10 ML SYR IVP (13:29)
[2021-06-13] MEDS: CIPROFLOXACIN 400 MG/200 ML BAG 200 MG IVPB ×2 (13:29→20:19)
[2021-06-13] MEDS: OLANZapine 2.5 MG TAB PO (13:29)
[2021-06-13] MEDS: Normal Saline 500 ML 30 ML UD (13:29)
--- NOTE | 2021-06-13 14:10 | MHPN_ITS ---
Date of service: 06/13/21 Time of Service: 14:10 Mental Health Progress Note Progress Note Progress Note: Presenting Issue: Client presents with altered mental state, impaired judgment and memory, and passive thoughts of SI. Precipitating Factors Disposition * Behavior: Cooperative *Eye Contact:limited *Mood:Depressed *Affect:Flat *Appetite: Reports not very much of an appetite *Sleep(troubel falling/staying asleep):Client reports sleep is all over the place. Client feels he is not sleeping a lot. Plan(please elaborate and include that physician is consulted with plan and/or placement): Client is voluntarily seeking placement at psychiatric hospital or crisis bed. Client will be reassessed daily by [facility]. Clinician's Name , Title, and Signature Ramon Jean BA Make sure that you are photocopying and submitting this to [facility] records Dept. to be scanned into chart.
--- NOTE | 2021-06-13 14:38 | PGE_ITS ---
Date of Service Date of service: 06/13/21 Time of Service: 12:00 Assessment and Plan Assessment and plan (1) Altered mental status: Start date: 06/13/21 Start time: 12:00 Status: Resolved Assessment and plan: Sitting in chair crying having a break down not really answering questions, Refusing all medications for nursing Not wanting to eat meals or take antibiotics, cooperate with care He looked defeated when I saw him He was agreeable to taking ativan, After he took the ativan he was able to calm down. I asked him about going home, he stated what home. I asked him who did he live with, he stated no one now i suspect there was a female (as i did ask gender preference) that triggered this behaviour. He repeated every time something goes good it goes the wrong way. He is mumbling off and on during our conversation. I sat quietly with him during most of it. Asking questions here and there. I asked if he wanted me to come back after he statedthey always come back. I will stay until you decide then I sat there and asked him what do you want to do Vincent? Do you want to go home or do you want to go to mental health facility. He answered I think I need to go to a facility I said ok Vincent, I think you right and you would get more benefit from that. CM notified. Will switch antibiotics to IV (2) Enterococcus UTI: Start date: 06/13/21 Start time: 12:00 Status: Acute Assessment and plan: as above (3) Bipolar disorder: Start date: 06/13/21 Start time: 12:00 Status: Chronic Assessment and plan: cleared him yesterday, however, he would benefit from this providers standpoint for a facility (4) Lactic acidosis: Start date: 06/13/21 Start time: 12:00 Status: Resolved Assessment and plan: Resolved (5) Urinary retention: Start date: 06/13/21 Start time: 12:00 Status: Resolved Assessment and plan: Resolved. Patient was constipated. Large BM yesterday. (6) Ambulatory dysfunction: Start date: 06/13/21 Start time: 12:00 Status: Acute Assessment and plan: PT consulted. Refused today (7) DVT prophylaxis: Start date: 06/13/21 Start time: 12:00 Status: Acute Assessment and plan: SC lovenox (8) Discharge planning issues: Start date: 06/13/21 Start time: 12:00 Status: Acute Assessment and plan: Full code Benefit from MH facility as voluntary CM aware Not doing well mentally today Discussed with Dr. Ramos Subjective Subjective Patient reports: other Interval history since last seen: Patient in room in chair, no allowing nursing to give pills, perform PVR, he is sitting in his chair crying. Myself and the nurse Ny go in to the room to sit and speak with him. Today, he does not appear to be in a good frame of mind. He is crying, when asked I thought you wanted to go home, he states what home. He agrees to take the ativan ordered to gather his thoughts. After a while he takes it. I sat and spoke with him for over 30 mins. It appears this may have stemmed from a girl leaving him. He mumbled a lot. I asked him what he wanted or what he thought would be best for his mental health, he said going voluntary. After sitting with him, he refused to eat lunch, cried for about 20 mins, would not make eye contact and he is not ready from this providers standpoint mentally to go home. He would benefit from voluntary placement. Patient agrees to voluntary placement. Will make antibiotics BID IV at this time until placed. Exam Narrative Exam Narrative: Does not appear SOB, sitting up in chair, crying, breaking down NAD. visible skin c/d/i. mumbling, not in a good place today mentally. Does not make eye contact when speaking, unless asked to make eye contact. mumbles at first then speaks in clear sentences when asked to. Made it clear what home do I have to g o home to I would feel better going to a facility. Objective Last Vital Signs Temp 36.6 C 06/13/21 07:44 Pulse 102 H 06/13/21 07:44 Resp 18 06/13/21 07:44 BP 123/86 06/13/21 07:44 Pulse Ox 97 06/13/21 07:44 Laboratory Results - last 24 hr 06/13/21 06/13/21 07:20 07:20 WBC 4.97 RBC 4.47 Hgb 13.7 Hct 39.0 L MCV 87.2 MCH 30.6 MCHC 35.1 RDW 11.9 Plt Count 270 MPV 11.2 H Immature Gran % 0.8 Neutrophils % 58.5 Lymphocytes % 29.4 Monocytes % 8.9 Eosinophils % 1.8 Basophils % 0.6 Nucleated RBC % 0 Absolute Neutrophils 2.91 Absolute Lymphocytes 1.46 Absolute Monocytes 0.44 Absolute Eosinophils 0.09 Absolute Basophils 0.03 Sodium 140 Potassium 3.8 Chloride 104 Carbon Dioxide 25.7 Anion Gap 10.3 BUN 8 Creatinine 0.6 L Estimated GFR/1.73 m2 >= 60.00 Glucose 109 H Calcium 8.9 Magnesium 2.4 Total Bilirubin 0.8 AST 14 L ALT 15 L Alkaline Phosphatase 59 Total Protein 7.3 Albumin 3.7
[2021-06-13 15:46] VITALS: BP 136/88; PULSE 106; RESP 19; TEMP 36.8; O2SAT 95
--- NOTE | 2021-06-13 19:52 | PDOC.CMPRO ---
- If Service Date Differs Date of service: 06/13/21 Time of Service: 19:52 Care Management Progress Note S/O: Vincent was sitting up in a chair when CM met with him. CM facilitated a zoom meeting with TOMAS Navarro, after the provider requested a re evaluation. Per provider, Vincent stated that he doesn't feel safe returning home, and that he would like to go voluntarily to inpatient psychiatric hospitalization. During the zoom, Vincent spoke very quietly and slowly, which was difficult for Ramon to understand at times. When asked if Vincent would be able to keep himself safe at home, he could not create a plan for safety with Ramon. He stated that he is feeling miserable, disoriented and confused. Ramon discussed Vincent staying with family or going to a crisis bed, as alternatives to hospitalization, but Vincent was not able to identify a plan at that time. He stated that he has a difficult time making plans, and following through with them. MARITA Navarro and the provider agree to Vincent remaining at [facility] while seeking hospitalization or a crisis bed. Later, CM met with Vincent again, who stated that he feels that he is in a nightmare, and on a loop, as he created a safety plan yesterday, and was not released. Per report, he was kept overnight for medication oversight. This morning he refused some medications, which was concerning to the provider. Vincent stated that he is concerned for his cats at home. CM offered to call a friend/family member, but Vincent declined. CM will continue to follow. A: Wilman is a 30 year old young man admitted on with AMS. P: Wilman will remain at [facility] for voluntary inpatient psychiatric stabilization vs crisis bed. His transportation will depend on disposition. He will follow up with his PCP and discharge plan of care. CM will continue to follow.
--- NOTE | 2021-06-13 20:03 | CMSP_ITS ---
- If Service Date Differs Date of service: 06/13/21 Time of Service: 20:03 Care Management Safety Plan Status: Voluntary - Reason for Wait Reason for Wait: Inpatient Admission, Community Placement VOLUNTARY FOR INPATIENT PSYCHIATRIC STABILIZATION. Patient is appropriate in all interactions since arriving at [facility]; Pt has demonstrated appropriate coping and communication skills, has articulated his or her needs and concerns and is fully engaged during staff interactions. Safety plan has been established with patient, and care team, to adhere to patient goals, identify restrictions based on behavioral status, address nutrition, and determine allowed personal belongings, tools for hygiene and personal care. Determine level of activity including ambulation, level of supervision, visitors, and determine privileges based on behaviors and level of engagement by pt. SAFETY PLAN: 1. Will remain on suicide precautions. In Paper Clothes 2. Will remain in room under supervision of staff. 3. May have paper cups, plates, finger foods as well as a cardboard spoon with which to eat meals. 4. Follow [facility] Management of the Admitted Behavioral Health Patient policy. 5. Comfort bath system only, shower permitted with escort at RN discretion. 6. No personal belongings-soft items permitted at RN discretion. 7. Visitors-none at this time. 8. Activities: soft cart items approved per RN discretion. 9. Bathroom privileges with escort in the ED, available in room without limitation on M/S. 10. Phone: contact limited to family at this time, via cordless phone at RN discretion. 11. Due to VOLUNTARY status, if patient wishes to leave [facility], staff will contact [facility] Crisis Screener ([phone]) and On-Call Mixer Blender ([phone]) as soon as possible. In the event of elopement, notify [facility] Police ([phone]). Patient is currently voluntarily at [facility] and seeking inpatient admission when a bed becomes available. [facility] Frontline Accounts Payable Technician will continue seeking placement. Please contact the Export Documents Clerk Mixer Blender ([phone]) and [facility] Accounts Payable Technician ([phone]) for any needed changes in the Safety Plan. Safety plan has been provided to interdepartmental care team.
[2021-06-13] MEDS: OLANZapine 5 MG TAB PO (20:18)
[2021-06-13] MEDS: Docusate Sodium 100 MG CAP PO (20:19)
[2021-06-13] MEDS: Polyethylene Glycol 3350 17 GM PACKET PO (20:19)
[2021-06-13 23:14] VITALS: BP 112/68; PULSE 70; RESP 18; TEMP 36.2; O2SAT 96
[2021-06-14 08:10] VITALS: BP 133/88; PULSE 99; RESP 16; TEMP 36.5; O2SAT 95
[2021-06-14] MEDS: Normal Saline Flush 10 ML SYR IVP (08:41)
[2021-06-14] MEDS: CIPROFLOXACIN 400 MG/200 ML BAG 200 MG IVPB (08:41)
[2021-06-14] MEDS: OLANZapine 5 MG TAB PO (08:41)
[2021-06-14] MEDS: LORazepam 1 MG TAB PO ×3 (08:41→21:20)
--- NOTE | 2021-06-14 12:29 | W.PM.PROGNOT ---
Date of Service Date of service: 06/14/21 Time of Service: 12:10 Subjective Subjective Patient reports: no new complaints Interval history since last seen: Patient with flat affect. No crying today. Doing better than yesterday, still making little eye contact. flat affect. mumbling. Asking for oral medications and for IV to be removed. If patient takes medications orally tonight IV can be removed and he can be moved to transition unit. Explained to him the importance of taking antibiotic BID to get rid of infection. He agreed to taking with CPSO present for conversation. Exam Const General: cooperative, comfortable and no acute distress Nutritional Appearance: obese Orientation: alert, awake and oriented x3 Eyes Eyelids: eyelids normal Pupils: PERRL EOM: EOM intact bilaterally Resp Effort & Inspection: normal respiratory effort Auscultation: clear to auscultation bilaterally Cardio Jugular venous pressure: no JVD Rhythm: regular rhythm Heart Sounds: S1 normal GI Auscultation: normal bowel sounds Skin General skin exam: no rashes or lesions noted Neuro General: patient alert, patient awake and patient oriented x3 Extrem General: normal to inspection, full ROM and no clubbing, cyanosis or edema Psych Appearance: well kempt Mental Status: other Speech and Movement: other (mumbled) Mood: other Affect: other (flat) Attitude: cooperative and avoids eye contact Thought Process: circumstantial Thought Content: other Insight: poor Judgment: poor Objective Last Vital Signs Temp 36.5 C 06/14/21 08:10 Pulse 99 H 06/14/21 08:10 Resp 16 06/14/21 08:10 BP 133/88 06/14/21 08:10 Pulse Ox 95 06/14/21 08:10
--- NOTE | 2021-06-14 12:40 | PDOC.MHPN2 ---
Date of service: 06/14/21 Time of Service: 12:40 Mental Health Progress Note Progress Note Progress Note: Presenting Issue: Client continues to present in altered mental status with impaired judgment and memory. Precipitating Factors Disposition * Behavior:Cooperative *Eye Contact:minimal *Mood:Depressed *Affect:Flat *Appetite: Improving, client reports he had a burger for lunch. *Sleep(troubel falling/staying asleep):reports difficulties staying asleep. Plan(please elaborate and include that physician is consulted with plan and/or placement):Client can not be adequately safety planed home. Client is voluntarily seeking inpatient treatment or a crisis bed for stabilization. Client will be reassessed daily by [facility]. Clinician's Name , Title, and Signature Ramon Jean BA Make sure that you are photocopying and submitting this to [facility] records Dept. to be scanned into chart.
--- NOTE | 2021-06-14 13:58 | PSYCHFUP_ITS ---
Date of Service Date of service: 06/14/21 Time of Service: 13:58 Assessment and Plan Assessment and plan (1) Altered mental status: Status: Resolved Assessment and plan: Catatonia: continue lorazepam 1 mg QID x 24 hours. If catatonia symptoms remain well controlled, taper lorazepam to 1 mg TID and continue at this dose (2) Bipolar disorder: Status: Chronic Assessment and plan: Mood: recommend lurasidone (Latuda) 20 mg daily (with 300 calorie of food) as an alternative to olanzapine as it may have some superiority over olanzapine for Bipolar depression Disposition: consider referral to care bed at [facility] or inpatient psychiatry if level of impairment remains considerable Care coordination with [facility] regarding treatment history and follow up needs Telepsych Follow up PRN Psychiatry Subjective Narrative:: 4 hour telepsychiatry consulation follow up requested by Kristina Daily. Chart is reviewed and case is discussed with Dr. Ramos and Kristina Richards. During the interval since last consulted, the patient has been assessed by neurology who ruled out an encephalopathic process. He was subsequently started on lorazepam 1 mg QID and showed decent improvement in catatonic symptoms in first 24 hours. He was also diagnosed with a UTI and started on ciprofloxacin for this. He mental status has varied between higher level of cooperation and engagement and more intense withdrawal and emotional lability. Yesterday, as an example, he refused to accept all oral medications. With support, he took lorazepam to good effect. Today he has been more cooperative treatment and is more readily engageable. His mood is reported as quite depressed and he identifies a recent relationship break up as an acute precipitant. He has denied active thoughts of suicide and has been cleared by [facility] and deemed not meeting criteria for inpatient psychiatry. According to Jh Abimbola, the patient receives psychiatric care at [facility] and discussion of a care bed has been considered. In terms of functional capacity currently, he is independent with self care and coopeative with medications. His appetite and nutritional intake remains poor however. In terms of ongoing management, I discuss medication management options with Ms. Daily and Dr. Ramos. Additionally, I offer to coordinate care with outpatient team at [facility]. Exam Narrative Exam Narrative: Direct examination of patient deferred at this time. Objective Medications: Active Inpatient Medications Report Generic Name Dose Route Start Last Admin Trade Name Freq PRN Reason Stop Dose Admin Bisacodyl 5 mg 06/10/21 08:21 06/10/21 18:41 Bisacodyl 5 Mg Tabec PO 5 mg DAILY PRN PRN Administration Ciprofloxacin HCl 500 mg 06/14/21 20:00 Ciprofloxacin 500 Mg Tab PO BID NE Dimethicone/Zinc Oxide 0 gm 06/08/21 23:13 Nataliya Protect Cream 142 Gm Tube TP PRN PRN Docusate Sodium 100 mg 06/10/21 08:30 06/14/21 08:42 Docusate Sodium 100 Mg Cap PO Not Given BID NE Enoxaparin Sodium 40 mg 06/10/21 10:00 06/14/21 11:01 Enoxaparin 40 Mg/0.4 Ml Syr SC Not Given Q24H NE Sodium Chloride 500 mls @ 0 mls/hr 06/10/21 08:47 06/13/21 13:29 Saline 500ml Bag UD 30 mls/hr PRN PRN Administration As Directed IV Miscellaneous Supplies 1 each 06/08/21 20:45 Iv Access IV DIRECTED [facility] Lorazepam 1 mg 06/11/21 20:00 06/14/21 12:23 Lorazepam 1 Mg Tab PO Not Given QID NE Lurasidone HCl 20 mg 06/14/21 13:55 Lurasidone 40 Mg Tab PO DAILY NE Magnesium Hydroxide 30 ml 06/11/21 15:12 Milk Of Magnesia 30 Ml Cup PO DAILY PRN PRN Ondansetron HCl 4 mg 06/11/21 09:30 06/11/21 15:04 Ondansetron 4 Mg/2 Ml Vial IVP 4 mg Q6H PRN PRN Administration Polyethylene Glycol 17 gm 06/12/21 20:00 06/14/21 08:42 Polyethylene Glycol 3350 17 Gm Packet PO Not Given BID NE Sodium Chloride 0 ml 06/08/21 20:32 06/14/21 08:41 Normal Saline Flush 10 Ml Syr IVP 10 ml PRN PRN Administration Discontinued Medications Generic Name Dose Route Start Last Admin Trade Name Freq PRN Reason Stop Dose Admin Ciprofloxacin HCl 500 mg 06/12/21 10:00 06/13/21 08:40 Ciprofloxacin 500 Mg Tab PO Not Given BID NE Sodium Chloride 1,000 mls @ 1,000 mls/hr 06/08/21 20:32 06/08/21 21:44 Saline 1000ml Bag IV 06/08/21 21:31 Infused BOLUS ONE Infusion Sodium Chloride 1,000 mls @ 1,000 mls/hr 06/08/21 20:32 06/08/21 21:45 Saline 1000ml Bag IV 06/08/21 21:31 Infused BOLUS ONE Infusion Potassium Chloride/Sodium Chloride 1,000 mls @ 125 mls/hr 06/08/21 21:45 06/09/21 06:18 Kcl 40 Meq/Ns IV Infused INFUSION NE Infusion Potassium Chloride/Sodium Chloride 1,000 mls @ 150 mls/hr 06/08/21 23:15 06/09/21 09:51 Kcl 20meq/Ns IV Infused INFUSION NE Infusion Potassium Chloride 20 meq in 100 mls @ 50 mls/hr 06/10/21 08:30 06/10/21 14:10 IVPB 06/10/21 12:29 Infused Q2H NE Infusion Vancomycin HCl 1,000 mg/ 250 mls @ 166.6666 mls/hr 06/10/21 17:59 06/10/21 19:06 Sodium Chloride IVPB 06/10/21 19:28 Not Given NOW ONE Protocol Vancomycin/PEG/NADA/Lysine/Water 1.5 gm in 300 mls @ 200 mls/hr 06/11/21 16:00 06/12/21 09:10 Vancocin Injection IV Not Given Q8H NE Protocol Vancomycin/PEG/NADA/Lysine/Water 1.5 gm in 300 mls @ 200 mls/hr 06/10/21 20:00 06/11/21 10:43 Vancocin Injection IVPB 06/11/21 11:00 200 mls/hr Q12H NE Infusion Ringer's Solution 1,000 mls @ 75 mls/hr 06/11/21 09:00 06/12/21 11:26 IV 0 mls/hr INFUSION NE Infusion Ciprofloxacin 400 mg in 200 mls @ 200 mls/hr 06/13/21 12:53 06/13/21 13:29 Cipro I.V. IVPB 06/13/21 13:52 200 mls/hr NOW ONE Administration Protocol Ciprofloxacin 400 mg in 200 mls @ 200 mls/hr 06/13/21 20:00 06/14/21 08:41 Cipro I.V. IVPB 200 mls/hr Q12H NE Administration Protocol Iohexol 100 ml 06/11/21 10:45 06/11/21 10:32 Omnipaque 350 Mg/Ml 100 Ml Btl IJ 06/11/21 12:00 100 ml DIRECTED NE Administration [place] Carbonate 300 mg 06/09/21 11:05 06/09/21 11:45 [place] Carbonate 300 Mg Tabcr PO 300 mg BID NE Administration Lorazepam 0.5 mg 06/08/21 21:47 06/08/21 21:52 Lorazepam 2 Mg/Ml Vial IVP 06/08/21 21:48 0.5 mg NOW ONE Administration Lorazepam 1 mg 06/11/21 14:36 06/11/21 14:53 Lorazepam 2 Mg/Ml Vial IVP 06/11/21 14:37 1 mg NOW ONE Administration Lorazepam 1 mg 06/11/21 16:39 06/11/21 17:02 Lorazepam 2 Mg/Ml Vial IVP 06/11/21 16:40 1 mg NOW ONE Administration Magnesium Hydroxide 30 ml 06/11/21 15:12 06/11/21 17:02 Milk Of Magnesia 30 Ml Cup PO 06/11/21 15:13 30 ml NOW STA Administration Olanzapine 5 mg 06/09/21 20:00 06/10/21 07:48 Olanzapine 5 Mg Tab PO 5 mg BID NE Administration Olanzapine 2.5 mg 06/13/21 14:00 06/13/21 13:29 Olanzapine 2.5 Mg Tab PO 2.5 mg TID NE Administration Olanzapine 5 mg 06/13/21 20:00 06/14/21 08:41 Olanzapine 5 Mg Tab PO 5 mg TID NE Administration Polyethylene Glycol 17 gm 06/12/21 11:31 06/12/21 12:30 Polyethylene Glycol 3350 17 Gm Packet PO 06/12/21 11:32 17 gm DAILY ONE Administration Risperidone 1 mg 06/09/21 11:05 06/09/21 11:45 Risperidone 1 Mg Tab PO 1 mg BID NE Administration Sodium Biphosphate/Sodium Phosphate 133 ml 06/11/21 08:43 06/11/21 11:15 Na Phosphate Enema 133 Ml Btl VT 06/11/21 08:44 1 btl NOW ONE Administration Sodium Chloride 50 ml 06/11/21 10:30 06/11/21 10:31 Normal Saline 250 Ml Bag IJ 06/11/21 12:00 250 ml DIRECTED NE Administration Vitals: Vital Signs - 24 hr 06/13/21 15:46 06/13/21 23:14 06/14/21 08:10 Temperature 36.8 C 36.2 C L 36.5 C Pulse 106 H 70 99 H Respiratory Rate 19 18 16 Blood Pressure 136/88 112/68 133/88 Pulse Oximetry 95 96 95 Consent/Time spent Consent/Time Spent The patient has consented to a virtual communication with the provider: Yes Visit performed via: Audio Time Spent (minutes): 40
--- NOTE | 2021-06-14 13:59 | PT.INTREAT ---
PT Notes Visit Reasons: Altered Mental Status,Possible Drug OD Inpatient Physical Therapy Treatment Note [facility] Date: 06/14/21 SUBJECTIVE:Vincent is agreeable to walk this am. He decided to stay in room. He did state a concern that he smells bad. OBJECTIVE: [] BED MOBILITY/TRANSFERS Sit-stand: CGA Stand-sit: CGA GAIT Assistive Device: no AD Weight bearing:FWB Assist: CGA Distance: approx 30' in room he stood and looked out window x 5 min ASSESSMENT: James nails. He had better eye contact with me today, although it wasn't consistent or for any length of time. Does not answer questions in full sentences. Gait is slow and not very steady, although no LOB noted. Decreased neri and no arm swing. PLAN: will continue to progress to his tolerance. TREATMENT CODE/TIME: 10 min [id number]
[2021-06-14] MEDS: Lurasidone 40 MG TAB 20 MG PO (16:55)
[2021-06-14 17:06] VITALS: BP 140/85; PULSE 106; RESP 18; TEMP 36.4; O2SAT 97
--- NOTE | 2021-06-14 17:22 | PDOC.CMPRO ---
- If Service Date Differs Date of service: 06/14/21 Time of Service: 17:22 Care Management Progress Note S/O: Vincent was sitting up in his chair when CM met with him. CM facilitated an in person screening by TOMAS Navarro. Vincent was much more awake, alert and engaged in conversation today. Ramon attempted to create a safety plan with Vincent, but he was unable to. Dr. Eid met the provider via phone and they discussed medication management. Changes were made to his medication, including titrating down the ativan, which Vincent is happy about. His medications were changed to all oral, therefore he was moved to the transition area. He reported to his RN that he is not as comfortable in the transition area. He will continue to be monitored with the changes in medication, and referrals were sent to inpatient psychiatric hospitals as well as crisis beds. Vincent is agreeable to remain at [facility] currently. CM will continue to follow. A: Wilman is a 30 year old young man admitted on with AMS. P: Wilman will remain at [facility] for voluntary inpatient psychiatric stabilization vs crisis bed. His transportation will depend on disposition. He will follow up with his PCP and discharge plan of care. CM will continue to follow.
--- NOTE | 2021-06-14 17:26 | CMSP_ITS ---
- If Service Date Differs Date of service: 06/14/21 Time of Service: 17:26 Care Management Safety Plan Status: Voluntary - Reason for Wait Reason for Wait: Inpatient Admission, Community Placement VOLUNTARY FOR INPATIENT PSYCHIATRIC STABILIZATION. Patient is appropriate in all interactions since arriving at [facility]; Pt has demonstrated appropriate coping and communication skills, has articulated his or her needs and concerns and is fully engaged during staff interactions. Safety plan has been established with patient, and care team, to adhere to patient goals, identify restrictions based on behavioral status, address nutrition, and determine allowed personal belongings, tools for hygiene and personal care. Determine level of activity including ambulation, level of supervision, visitors, and determine privileges based on behaviors and level of engagement by pt. SAFETY PLAN: 1. Will remain on suicide precautions. In Paper Clothes. 2. Will remain in room under direct supervision of one-on-one staff at all times provided by [employer]; BERRY, COMPONENT INSPECTOR ore grader. 3. May have paper cups, plates, finger foods as well as a cardboard spoon with which to eat meals. 4. Follow [facility] Management of the Admitted Behavioral Health Patient policy. 5. Comfort bath system only, shower permitted with escort at RN discretion. 6. No personal belongings-soft items permitted at RN discretion. 7. Visitors-none at this time. 8. Activities: soft cart items approved per RN discretion. 9. Bathroom privileges with escort in the ED, available in room without limitation on M/S. 10. Phone: contact limited to family at this time, via cordless phone at RN discretion. 11. Due to VOLUNTARY status, if patient wishes to leave [facility], staff will contact [facility] Crisis Screener ([phone]) and On-Call Bronze Plater ([phone]) as soon as possible. In the event of elopement, notify [place] [employer] ([phone]). Patient is currently voluntarily at [facility] and seeking inpatient admission when a bed becomes available. [facility] Frontline Executive Vice President will continue seeking placement. Please contact the [employer] Staff Nurse Bronze Plater ([phone]) and [facility] Executive Vice President ([phone]) for any needed changes in the Safety Plan. Safety plan has been provided to interdepartmental care team.
[2021-06-14] MEDS: Docusate Sodium 100 MG CAP PO (21:20)
[2021-06-14] MEDS: Ciprofloxacin 500 MG TAB PO (21:20)
[2021-06-14] MEDS: Polyethylene Glycol 3350 17 GM PACKET PO (21:21)
[2021-06-15 02:27] VITALS: BP 123/73; PULSE 96; RESP 16; TEMP 37.2; O2SAT 95
[2021-06-15 07:45] VITALS: BP 135/83; PULSE 92; RESP 18; TEMP 37; O2SAT 95
[2021-06-15] MEDS: Docusate Sodium 100 MG CAP PO ×2 (09:00→20:45)
[2021-06-15] MEDS: Polyethylene Glycol 3350 17 GM PACKET PO ×2 (09:00→20:46)
[2021-06-15] MEDS: Ciprofloxacin 500 MG TAB PO ×2 (09:00→20:46)
[2021-06-15] MEDS: LORazepam 1 MG TAB PO (09:02)
[2021-06-15] MEDS: Enoxaparin 40 MG/0.4 ML SYR SC (10:47)
--- NOTE | 2021-06-15 11:50 | CMSP_ITS ---
- If Service Date Differs Date of service: 06/15/21 Time of Service: 11:51 Care Management Safety Plan Status: Voluntary - Reason for Wait Reason for Wait: Inpatient Admission VOLUNTARY FOR INPATIENT PSYCHIATRIC STABILIZATION. Patient has been appropriate since arriving at [facility]; Wilman continues to present with low affect- psychomotor delay. He has demonstrated appropriate coping and communication skills, has articulated his or her needs and concerns and is fully engaged during some staff interactions. Safety plan has been established with patient, and care team, to adhere to patient goals, identify restrictions based on behavioral status, address nutrition, and determine allowed personal belongings, tools for hygiene and personal care. Determine level of activity including ambulation, level of supervision, visitors, and determine privileges based on behaviors and level of engagement by pt. SAFETY PLAN: 1. Will remain on suicide precautions, no CPSO required. Permitted to have patient's own clothes. 2. Will remain in transition area; CPSO not required at this time per huddle discussion; Wilman is being held seeking psychiatric stabilization in secure environment where medication changes can be tailored and observed appropriately. He is not expressing HI or SI at this time. 3. May have paper cups, plates, finger foods as well as a cardboard spoon with which to eat meals. 4. Follow [facility] Management of the Admitted Behavioral Health Patient policy. 5. Comfort bath system only, shower permitted with escort at RN discretion. 6. No personal belongings-soft items permitted at RN discretion. 7. Visitors-per patient preference during regular visitation hours. 8. Activities: soft cart items approved per RN discretion. 9. Bathroom privileges with escort in the ED, available in room without limitation on M/S. 10. Phone: contact limited to family at this time, via cordless phone at RN discretion. 11. Due to VOLUNTARY status, if patient wishes to leave [facility], staff will contact [facility] Crisis Screener ([phone]) and On-Call Support Services Rep ([phone]) as soon as possible. In the event of elopement, notify [place] [employer] ([phone]). Patient is currently voluntarily at [facility] and seeking inpatient admission when a bed becomes available. [facility] Frontline Pesticide Chemist will continue seeking placement. Please contact the Eyeglass Fitter Support Services Rep ([phone]) and [facility] Pesticide Chemist ([phone]) for any needed changes in the Safety Plan. Safety plan has been provided to interdepartmental care team.
--- NOTE | 2021-06-15 12:15 | CMPROGNOTE_ITS ---
- If Service Date Differs Date of service: 06/15/21 Time of Service: 12:15 Care Management Progress Note S/O: Wilman was cleared from requiring a safety plan, daily assessment by [facility] and psychiatric stabilization coordination continues. Per interdepartmental hudjaneth, Hospitalist and Dr. Eid's recommendations, inpatient psych placement continues to be sought to enable medications adjustments in a secure environment for observation. Due to not having SI or HI during this hospitalization, safety plan will discontinued. Per Dr. Eid He has denied active thoughts of suicide and has been cleared by [facility] and deemed not meeting criteria for inpatient psychiatry. Note states patient is not suicidal. [facility] reports further observation for medication changes required, no SI/HI, please refer to [facility] note for further information. A: 30 year old male admitted to [facility] 06/09/21 for AMS P: Wilman continues to be closely monitored on M/S, he continues to be followed by Hospitalist, [facility] and Dr. Eid with plan for continued medication adjustment observation with hopes of transfer to psychiatric hospitalization for continued medication oversight and observation in a secure setting. CM continues to follow. - Status Status: Voluntary - Reason for Wait Reason for Wait: Inpatient Admission
[2021-06-15 13:10] VITALS: BP 127/86; PULSE 95; RESP 14; TEMP 36.9; O2SAT 96
--- NOTE | 2021-06-15 13:31 | NUR.NOTE ---
Had team huddle regarding patient plan- per provider patient does not need continued 1:1 monitoring. Nursing expressed concern about patient not engaging in care, at times refusing medications, poor oral intake, poor eye contact and inability to state that he will remain safe while in hospital. Provider, Nurse Application Technical Designer, Marcy Corea and Jenna from [facility] state that CPSO monitoring is not required for this patient-currently seeking placement at mental health facility for medication adjustment. Nursing staff caring for patient not in agreement with new plan. Nursing Note:
--- NOTE | 2021-06-15 14:36 | W.NUTRFU ---
Date of service: 06/15/21 Time of Service: 14:36 Nutrition Note NOTE: Mr. Mackay is taking Latuda which needs to be taken with 350 calories. We are giving him Ensure plus at each meal as he is drinking better than he is eating. Ensure Plus has 350 calories so his Latuda can be taken with one carton of it. PO intake overall has been poor. His weight today is 100.9 kg and it has been entirely stable. BMI is 31.9 kg/m2 consistent with class 1 mild obesity. Will continue to follow his weight, PO intake, and tolerance to Ensure plus. Will evaluate nutrition care plan and adjust as needed. Time Spent in Nutritional Counseling and Treatment: 0
[2021-06-15 15:02] VITALS: BP 130/84; PULSE 85; RESP 17; TEMP 36.7; O2SAT 96
--- NOTE | 2021-06-15 16:03 | PT.INNT ---
Date of service: 06/15/21 Time of Service: 16:03 PT Notes Visit Reasons: Altered Mental Status,Possible Drug OD 06/15/2021 Attempted to rouse patient in both a.m. and p.m. without success. Will attempt to resume PT services tomorrow morning.
[2021-06-15 16:35] VITALS: BP 132/87; PULSE 90; RESP 14; TEMP 36.8; O2SAT 95
[2021-06-15] MEDS: Lurasidone 40 MG TAB 20 MG PO (17:44)
--- NOTE | 2021-06-15 17:47 | W.PM.PROGNOT ---
Date of Service Date of service: 06/15/21 Time of Service: 15:00 Assessment and Plan Assessment and plan (1) Depression: Start date: 06/15/21 Start time: 15:00 Status: Chronic Assessment and plan: Patient started on latuda with careful titration of ativan after catationia. This happened after discussion with Dr. Eid yesterday. He has not thoughts of SI or HI. He is depressed. He would qualify for a carebed if one opens up. (2) Altered mental status: Start date: 06/15/21 Start time: 15:00 Status: Resolved Assessment and plan: resolved. (3) Enterococcus UTI: Start date: 06/15/21 Start time: 15:00 Status: Acute Assessment and plan: Ciprox 2 weeks bid (4) Bipolar disorder: Start date: 06/15/21 Start time: 15:00 Status: Chronic Assessment and plan: as above (5) Lactic acidosis: Start date: 06/15/21 Start time: 15:00 Status: Resolved Assessment and plan: Resolved (6) Urinary retention: Start date: 06/15/21 Start time: 15:00 Status: Resolved Assessment and plan: Resolved. (7) Ambulatory dysfunction: Start date: 06/15/21 Start time: 15:00 Status: Acute Assessment and plan: PT consulted. Refusing, result of depression, able to ambulate, he does when he wants to. (8) DVT prophylaxis: Start date: 06/15/21 Start time: 15:00 Status: Acute Assessment and plan: SC lovenox (9) Discharge planning issues: Start date: 06/15/21 Start time: 15:00 Status: Acute Assessment and plan: Full code He wants a facility as voluntary, though he would qualify for a care bed CM aware Discussed with Dr. Brown Subjective Subjective Patient reports: other Interval history since last seen: Patient lying in bed. Was able to get patient to sit up on side of bed. No thoughts of SI or HI. Patient depressed. Ate more food today. Decreased ativan to TID today. Continue to monitor patient behavior for depression. He will open his eyes and look at you if you ask him to directly and speak up if asked to. He does mumble sometimes Exam Const General: cooperative, comfortable and no acute distress Nutritional Appearance: obese Orientation: alert, awake and oriented x3 Eyes Eyelids: eyelids normal Pupils: PERRL EOM: EOM intact bilaterally Resp Effort & Inspection: normal respiratory effort Auscultation: clear to auscultation bilaterally Cardio Jugular venous pressure: no JVD Rhythm: regular rhythm Heart Sounds: S1 normal GI Auscultation: normal bowel sounds Skin General skin exam: no rashes or lesions noted Neuro General: patient alert, patient awake and patient oriented x3 Extrem General: normal to inspection, full ROM and no clubbing, cyanosis or edema Psych Appearance: well kempt Mental Status: other Speech and Movement: other (mumbled) Mood: other Affect: other (flat) Attitude: cooperative and avoids eye contact Thought Process: circumstantial Thought Content: other Insight: poor Judgment: poor Objective Last Vital Signs Temp 36.7 C 06/15/21 15:02 Pulse 85 06/15/21 15:02 Resp 17 06/15/21 15:02 BP 130/84 06/15/21 15:02 Pulse Ox 96 06/15/21 15:02
--- NOTE | 2021-06-15 18:20 | NUR.NOTE ---
1635: Pt was transferred from room 235 to room 216 via wheelchair. 174: Pt sitting up in his chair in front of his suppertime meal, Latuda 20mg po given as ordered. 1809: Pt sitting up in his chair, pt consumed 100% of his bowl of Mac & Cheese and 240cc of his chocolate shake.
--- NOTE | 2021-06-15 18:33 | NUR.NOTE ---
Nursing Note: At this time, this RN visited with the patient. This RN asked patient if he ate dinner, he looked at me and stated yeah. When asked what he ate he said Mac and cheese. Patient then looked away and closed his eyes. When asked is there anything we can get you? he did not answer. When asked if he wanted me to leave he stated yes. At this time, this RN left the room. Charge nurse notified.
[2021-06-15 23:54] VITALS: TEMP 36.7
[2021-06-16 03:28] VITALS: BP 113/74; PULSE 83; RESP 16; TEMP 36.7; O2SAT 94
[2021-06-16 06:48] LABS: Platelet Count 275 10^3/uL (130-400)
[2021-06-16 07:25] VITALS: BP 116/76; PULSE 80; RESP 16; TEMP 36.7; O2SAT 96
[2021-06-16] MEDS: Docusate Sodium 100 MG CAP PO (07:51)
[2021-06-16] MEDS: LORazepam 1 MG TAB PO ×3 (07:51→19:51)
[2021-06-16] MEDS: Ciprofloxacin 500 MG TAB PO ×2 (07:51→19:53)
[2021-06-16] MEDS: Polyethylene Glycol 3350 17 GM PACKET PO ×2 (07:51→19:55)
[2021-06-16] MEDS: Enoxaparin 40 MG/0.4 ML SYR SC (10:21)
--- NOTE | 2021-06-16 12:12 | CMPROGNOTE_ITS ---
- If Service Date Differs Date of service: 06/16/21 Time of Service: 12:12 Care Management Progress Note S/O: Wilman was cleared from requiring a safety plan, daily assessment by [facility] and psychiatric stabilization coordination continues with the hope that Wilman will stabilize here or be admitted to care bed for continued observation. Per interdepartmental huddle, Hospitalist and Dr. Eid's recommendations, inpatient psych placement continues to be sought to enable medications adjust ments in a secure environment for observation. Due to not having SI or HI during this hospitalization, safety plan will discontinued. Per Dr. Eid He has denied active thoughts of suicide and has been cleared by [facility] and deemed not meeting criteria for inpatient psychiatry. Note states patient is not suicidal. [facility] reports further observation for medication changes required, no SI/HI, please refer to [facility] note for further information. A: 30 year old male admitted to [facility] 06/09/21 for AMS P: Wilman continues to be closely monitored on M/S, he continues to be followed by Hospitalist, [facility] and Dr. Eid with plan for continued medication adjustment observation with hopes of transfer to crisis bed/care bed for continued medication oversight and observation in a secure setting. CM continues to follow. - MH Services (Omit if N/A) Current MH Services: Internal [facility] - Status Status: Voluntary - Reason for Wait Reason for Wait: Community Placement (Crisis Bed )
--- NOTE | 2021-06-16 12:12 | PDOC.CMPRO ---
- If Service Date Differs Date of service: 06/16/21 Time of Service: 12:12 Care Management Progress Note S/O: Wilman was cleared from requiring a safety plan, daily assessment by [facility] and psychiatric stabilization coordination continues with the hope that Wilman will stabilize here or be admitted to care bed for continued observation. Per interdepartmental huddle, Hospitalist and Dr. Eid's recommendations, inpatient psych placement continues to be sought to enable medications adjustments in a secure environment for observation. Due to not having SI or HI during this hospitalization, safety plan will discontinued. Per Dr. Eid He has denied active thoughts of suicide and has been cleared by [facility] and deemed not meeting criteria for inpatient psychiatry. Note states patient is not suicidal. [facility] reports further observation for medication changes required, no SI/HI, please refer to [facility] note for further information. A: 30 year old male admitted to [facility] 06/09/21 for AMS P: Wilman continues to be closely monitored on M/S, he continues to be followed by Hospitalist, [facility] and Dr. Eid with plan for continued medication adjustment observation with hopes of transfer to crisis bed/care bed for continued medication oversight and observation in a secure setting. CM continues to follow. - MH Services (Omit if N/A) Current MH Services: Internal [facility] - Status Status: Voluntary - Reason for Wait Reason for Wait: Community Placement (Crisis Bed )
--- NOTE | 2021-06-16 12:24 | W.PM.PROGNOT ---
Date of Service Date of service: 06/16/21 Time of Service: 10:27 Assessment and Plan Assessment and plan (1) Depression: Start date: 06/16/21 Start time: 10:08 Status: Chronic Assessment and plan: Appears to be starting to eat on latuda. careful titration of ativan after catationia Tirated down to TID yesterday. Titrate down q3d. MH following. Can go to care bed if one opens up. He has no thoughts of SI or HI. He is depressed. He wants voluntary inpatient psychiatric therapy but can go to a care bed. He does not need a CPSO as he is not a danger to himself or others He is starting to eat more. (2) Altered mental status: Start date: 06/16/21 Start time: 10:08 Status: Resolved Assessment and plan: resolved. (3) Enterococcus UTI: Start date: 06/16/21 Start time: 10:08 Status: Acute Assessment and plan: Cipro BID Day 6 of antibiotics (4) Bipolar disorder: Start date: 06/16/21 Start time: 10:08 Status: Chronic Assessment and plan: as above (5) Ambulatory dysfunction: Start date: 06/16/21 Start time: 10:08 Status: Resolved Assessment and plan: Ambulatory (6) DVT prophylaxis: Start date: 06/15/21 Start time: 15:00 Status: Acute Assessment and plan: SC lovenox (7) Discharge planning issues: Start date: 06/16/21 Start time: 10:08 Status: Acute Assessment and plan: Full code He wants a facility as voluntary, though he would qualify for a care bed CM aware, possible care bed available tomorrow Discussed with Dr. Brown Subjective Subjective Patient reports: no new complaints Interval history since last seen: Patient lying in bed. Possible discharge tomorrow is care bed opens up. MH following. He is not Suicidal or Homicidal. Treatment for depression. Started on latuda. He did eat dinner last night. Ativan titrated down yesterday to TID. Does not appear as sleepy today. Titrate ativan q3d until off. Can be followed by [facility] or inpatient psych wants voluntary inpatient services for depression. Exam Const General: cooperative, comfortable and no acute distress Nutritional Appearance: obese Orientation: alert, awake and oriented x3 Eyes Eyelids: eyelids normal Pupils: PERRL EOM: EOM intact bilaterally Resp Effort & Inspection: normal respiratory effort Auscultation: clear to auscultation bilaterally Cardio Jugular venous pressure: no JVD Rhythm: regular rhythm Heart Sounds: S1 normal GI Auscultation: normal bowel sounds Skin General skin exam: no rashes or lesions noted Neuro General: patient alert, patient awake and patient oriented x3 Extrem General: normal to inspection, full ROM and no clubbing, cyanosis or edema Psych Appearance: well kempt Mental Status: other Speech and Movement: other (mumbled) Mood: other Affect: other (flat) Attitude: cooperative and avoids eye contact Thought Process: circumstantial Thought Content: other Insight: poor Judgment: poor Objective Last Vital Signs Temp 36.7 C 06/16/21 07:25 Pulse 80 06/16/21 07:25 Resp 16 06/16/21 07:25 BP 116/76 06/16/21 07:25 Pulse Ox 96 06/16/21 07:25 Laboratory Results - last 24 hr 06/16/21 06:20 Plt Count 275
[2021-06-16 15:30] VITALS: BP 143/85; PULSE 92; RESP 17; TEMP 36.5; O2SAT 95
--- NOTE | 2021-06-16 15:45 | PDOC.MHCN ---
Date of service: 06/16/21 Time of Service: 13:40 Mental Health Crisis Note Presenting Issue How did you arrive at the ED and why did you come: Client arrived at [facility] ED via emergency services on 06/08/2021. Client had stopped taking his medications and presented in a altered mental state. Precipitating Factors Client is denying SI/HI/NSSI. Disposition BEHAVIOR: Client presents in hospital scrubs, laying in the hospital bed sleeping when this clinician arrived. Client appears to still be in a catatonic state, however, appeared to be more coherent today. Client is able to open his eyes and respond to clinician with one worded answers. Client appears to be agitated and frustrated with his delay in responses and lack of ability to successfully communicate. Client exhibits a slow, quiet and slurred speech pattern. When clinician leaned into to hear the client better, the client states go away, I'm gross. Clinician is unable to determine whether client is alert and oriented to time, person, place and situation. EYE CONTACT: Minimal eye contact. MOOD: When asked how the client was doing today, client shakes his head no. AFFECT: Flat. APPETITE: As reported by nursing staff client has not been eating. SLEEP(trouble falling/staying asleep: Client has been sleeping all day. Plan Clients state of mind is altered, he appears to be in a catatonic state. Client is in need of medication management. Client will remain at [facility] on voluntary status until he can be safety planned home, or placement is found. Client is currently denying SI/HI/NSSI, therefore, he is not seeking psychiatric hospitalization. Referrals for care bed are being completed. Client requires a lower level of treatment for medication stabilization. He is unable to be safety planned home at this time due to his catatonic mental state. Signature Clinician's Name/Title: LIDIA Carlton
[2021-06-16] MEDS: Lurasidone 40 MG TAB 20 MG PO (17:04)
--- NOTE | 2021-06-16 17:30 | INDS_ITS ---
Date of service: 06/16/21 PT Notes Visit Reasons: Altered Mental Status,Possible Drug OD Physical Therapy Inpatient Discharge Summary Date: 06/16/2021 Dates of service: 06/10/2021 through 06/14/2021 This is a clinical summary of care provided for the duration of dates listed above. No charge was made in the completion of this documentation. Referring Doctor: Nakia Raoms MD PT Orders: PT CONSULT: Limited ability Precautions: Altered mental status and impaired safety awareness.? Fall. Standard. Activity as tolerated. Patient Profile/Admitting Diagnosis: Wilman is a 30-year-old male who was found by friends on the floor of his bedroom at home and was brought to the ED by EMS on 06/08/2021 with altered mental status and speech impairment.? Patient is diagnosed with pneumonia, altered mental status, bipolar disorder, amatory dysfunction, and urinary retention. PMHX: All Active Problems? Altered mental status (Acute) Bipolar disorder (Chronic) Social History/Home Situation: Unable to extract reliable information from patient at this time Equipment Owned/DME: Unable to extract reliable information from patient at this time Subjective: NT. See most recent DIRECTOR INTERNATIONAL notes. Objective: General Observation: S NT. See most recent DIRECT[employer] notes. Mental Status: NT. See most recent DIRECT[employer] notes. Pain: NT. See most recent DIRECT[employer] notes. Vital Signs: NT. See most recent [employer] notes. Closeley monitored by nursing staff ROM: Right Upper Extremity: ? Shoulder Flexion WFL. Shoulder abduction WFL. Elbow flexion WFL. Wrist flexion WFL. Functional opening and closing of hand WFL. Left Upper Extremity:? Shoulder Flexion WFL. Shoulder abduction WFL. Elbow flexion WFL. Wrist flexion WFL. Functional opening and closing of hand WFL. Right Lower Extremity: Hip flexion WFL. Hip abduction WFL. Knee flexion WFL. A nkle dorsiflexion WFL. Ankle plantarflexion WFL. Left Lower Extremity: Hip flexion WFL. Hip abduction WFL. Knee flexion WFL. Ankle dorsiflexion WFL. Ankle plantarflexion WFL. Strength: Right Upper Extremity: Grossly 3/5 Left Upper Extremity: Grossly 3/5 Right Lower Extremity: Grossly 3/5 Left Lower Extremity: Grossly 3/5 Bed Mobility/Transfers: Rolling minimal assist Supine to sit with minimal assist Sit to supine with minimal assist Scoot up in bed moderate assist of PT and Nurse Brittney Gait: Unable THERA EX:? Partilally able to move B LE for seated exercises and B UE once he was repositioned back in supine with ttactile cueing. Balance: Static Sitting: Good Dynamic Sitting: Fair Static Standing: Unable to test Dynamic Standing: Unable to test Assessment: Patient no longer appropriate for continued services and is in need of psychiatric re-stabilization. Goals: Goals X1 week 1. Supine-Sit independent NOT MET 2. Sit-Supine independent NOT MET 3. Sit-Stand independent NOT MET 4. Stand-Sit independent with no AD NOT MET 5. Bed-Chair independent with no AD no AD NOT MET 6. Chair-Bed independent with NOT MET 7. Independent gait on level surface with use of no AD for at least 300 feet without report of pain nor dyspnea NOT MET 8. Independent stair negotiation while holding onto B rails for at least 5 steps without report of pain nor dyspnea NOT MET DISCHARGE RECOMMENDATIONS: D/C from services per hospitalist COLT Acevedo's order on 06/16/2021 as patient is no longer apparopriate for PT services due to psychaitric issue exacerbation. TREATMENT CODE/TIME: NC Thank you for the opportunity to participate in the care of this patient. Marion Moore PT, DPT, CLT [facility] [place], [place]
[2021-06-16 23:25] VITALS: BP 116/75; PULSE 80; RESP 16; TEMP 36.6; O2SAT 98
[2021-06-17 06:26] LABS: Platelet Count 284 10^3/uL (130-400)
[2021-06-17 07:06] VITALS: BP 132/88; PULSE 98; RESP 18; TEMP 35.9; O2SAT 96
--- NOTE | 2021-06-17 07:08 | NUR.NOTE ---
pt observed to be very lethargic and tired this am. His V/S were BP 132/88, P 98, R 18, O2 sat 96. he denied chest pain or discomfort. Was trying to pee but could not despite getting him up to use the urinal. The set up and charger was informed.
[2021-06-17] MEDS: Ciprofloxacin 500 MG TAB PO ×2 (09:07→20:53)
[2021-06-17] MEDS: Docusate Sodium 100 MG CAP PO ×2 (09:07→20:53)
[2021-06-17] MEDS: Enoxaparin 40 MG/0.4 ML SYR SC (11:04)
--- NOTE | 2021-06-17 11:22 | W.PM.PROGNOT ---
Date of Service Date of service: 06/17/21 Time of Service: 11:23 Assessment and Plan Assessment and plan (1) Altered mental status: Status: Resolved Assessment and plan: recurrent. possibly d/t ativan scheduled dosing. will change to prn to see if this helps (2) Depression: Status: Chronic Assessment and plan: less interactive again. ? ativan dosing so will hold for now and make prn only. he really would benefit from inpatient psychiatric management for medication adjustment and does not seem appropriate for care bed. (3) Urinary retention: Status: Acute Assessment and plan: scanned to 800 cc toiday and unable to void. will straight cath prn retention greater than 500cc and unable to void. (4) Enterococcus UTI: Status: Acute Assessment and plan: Cipro BID Day 09/17 of antibiotics (5) Bipolar disorder: Status: Chronic Assessment and plan: as above (6) Ambulatory dysfunction: Status: Resolved Assessment and plan: Ambulatory (7) DVT prophylaxis: Status: Acute Assessment and plan: SC lovenox (8) Discharge planning issues: Status: Acute Assessment and plan: Full code would be best served in inpatient psychiatric bed for medication stabalization. Discussed with Dr. Brown Subjective Subjective Interval history since last seen: less interactive today again. hemodynamically stable, respiratory status stable Exam Const General: cooperative, comfortable and no acute distress Nutritional Appearance: obese Eyes Eyelids: eyelids normal Pupils: PERRL EOM: EOM intact bilaterally Resp Effort & Inspection: normal respiratory effort Auscultation: clear to auscultation bilaterally Cardio Rhythm: regular rhythm GI Auscultation: normal bowel sounds Skin General skin exam: no rashes or lesions noted Neuro General: patient alert, patient awake and patient oriented x3 Extrem General: normal to inspection, full ROM and no clubbing, cyanosis or edema Psych Appearance: well kempt Mental Status: other Speech and Movement: other (mumbled) Mood: other Affect: other (flat) Attitude: avoids eye contact Insight: poor Judgment: poor Objective Last Vital Signs Temp 35.9 C L 06/17/21 07:06 Pulse 98 H 06/17/21 07:06 Resp 18 06/17/21 07:06 BP 132/88 06/17/21 07:06 Pulse Ox 96 06/17/21 07:06 Laboratory Results - last 24 hr 06/17/21 06:21 Plt Count 284
--- NOTE | 2021-06-17 12:48 | PDOC.MHCN_ITS ---
Date of service: 06/17/21 Time of Service: 10:30 Mental Health Crisis Note Presenting Issue How did you arrive at the ED and why did you come: Client is seen today for check-in assessment while voluntary seeking placement at a crisis bed. Precipitating Factors Client nods yes when asked if he wanted to hurt himself, and nods no when asked if he wants to hurt others. Disposition BEHAVIOR: Client appears to be sleeping when this telegraphic typewriter operator chief arrives in person. Client would not awake and would only open eyes intermittently when verbally prompted by this telegraphic typewriter operator chief and childcare worker. EYE CONTACT: None MOOD: Clients mood appears to be exhausted as he would not verbally open eyes and participate in assessment. AFFECT: flat APPETITE: Reported by nursing staff that client did not eat his breakfast this morning. SLEEP(trouble falling/staying asleep: Reported by nursing staff that client has been sleeping a lot since yesterday. Plan Client will remain at [facility] on voluntary status awaiting inpatient treatment. Referrals have been sent to [facility], [facility], and [facility]. Client has also been referred to crisis beds, however due to clients presentation today it is in this clinicians professional opinion that he may need a higher level of care. This telegraphic typewriter operator chief will check-in with childcare worker this afternoon to see if clients presentation has changed. Signature Clinician's Name/Title: Suzan Huston [facility] Emergency Clinician.
[2021-06-17 15:30] VITALS: BP 123/76; PULSE 82; RESP 21; TEMP 37.3; O2SAT 96
--- NOTE | 2021-06-17 17:31 | PDOC.CMPRO ---
- If Service Date Differs Date of service: 06/17/21 Time of Service: 17:31 Care Management Progress Note S/O: Vincent was lying in bed this morning, unable to participate in conversation when MARITA and TOMAS Wahl, met with him. Later, CM met with Vincent, and he was more alert and engaged in conversation. He stated that he feels that whatever he does, he will mess it up. [facility] had sent a referral to the Care Bed, and he was accepted for admission, tentatively for tomorrow. CM discussed the Care bed with him, and he is agreeable to go. Per report, the Care Bed will provide oversight in a less clinical atmosphere, which will likely help him to feel more comfortable, as he has a difficult time engaging with staff while at [facility]. He continues to deny SI/HI. CM will continue to follow. A: 30 year old male admitted to [facility] 06/09/21 for AMS P: Wilman continues to be closely monitored on M/S, he continues to be followed by Hospitalist, TOMAS and Dr. Eid with plan for continued medication adjustment observation with hopes of transfer to crisis bed/care bed for continued medication oversight and observation in a secure setting. MARITA continues to follow.
[2021-06-17] MEDS: Lurasidone 40 MG TAB 20 MG PO (18:00)
[2021-06-17 23:10] VITALS: BP 115/66; PULSE 95; RESP 16; TEMP 36.2; O2SAT 96
[2021-06-18 07:06] LABS: HCT 41.6 % (40.0-50.0); HGB 14.5 g/dL (13.5-17.5); MCHC 34.9 % (32.0-36.0); MCV 88.9 fL (80-95); MPV 10.7 fL (8.0-11.0); Platelet Count 309 10^3/uL (130-400); RBC 4.68 10^6/uL (4.36-5.78); RDW 12.2 % (11.8-14.1); RDW-SD 39.5 fL; WBC 4.61 10^3/uL (4.4-10.8)
[2021-06-18 07:25] VITALS: BP 111/65; PULSE 90; RESP 12; TEMP 36.7; O2SAT 97
[2021-06-18] MEDS: Docusate Sodium 100 MG CAP PO (07:30)
[2021-06-18] MEDS: Ciprofloxacin 500 MG TAB PO (07:30)
--- NOTE | 2021-06-18 09:14 | W.PM.PROGNOT ---
Assessment and Plan Assessment and plan (1) Altered mental status: Status: Resolved Assessment and plan: recurrent. possibly d/t ativan scheduled dosing. will change to prn to see if this helps (2) Depression: Status: Chronic Assessment and plan: less interactive again. ? ativan dosing so will hold for now and make prn only. he really would benefit from inpatient psychiatric management for medication adjustment and does not seem appropriate for care bed. (3) Urinary retention: Status: Acute Assessment and plan: scanned to 800 cc toiday and unable to void. will straight cath prn retention greater than 500cc and unable to void. (4) Enterococcus UTI: Status: Acute Assessment and plan: Cipro BID Day 09/17 of antibiotics (5) Bipolar disorder: Status: Chronic Assessment and plan: as above (6) Ambulatory dysfunction: Status: Resolved Assessment and plan: Ambulatory (7) DVT prophylaxis: Status: Acute Assessment and plan: SC lovenox (8) Discharge planning issues: Status: Acute Assessment and plan: Full code would be best served in inpatient psychiatric bed for medication stabalization. Discussed with Dr. Brown Subjective Subjective Interval history since last seen: less interactive today again. hemodynamically stable, respiratory status stable Exam Narrative Exam Narrative: Does not appear SOB, sitting up in chair, crying, breaking down NAD. visible skin c/d/i. mumbling, not in a good place today mentally. Does not make eye contact when speaking, unless asked to make eye contact. mumbles at first then speaks in clear sentences when asked to. Made it clear what home do I have to go home to I would feel better going to a facility. Const General: cooperative, comfortable and no acute distress Nutritional Appearance: obese Orientation: alert, awake and oriented x3 Eyes Eyelids: eyelids normal Pupils: PERRL EOM: EOM intact bilaterally Resp Effort & Inspection: normal respiratory effort Auscultation: clear to auscultation bilaterally Cardio Jugular venous pressure: no JVD Rhythm: regular rhythm Heart Sounds: S1 normal GI Auscultation: normal bowel sounds Skin General skin exam: no rashes or lesions noted Neuro General: patient alert, patient awake and patient oriented x3 Extrem General: normal to inspection, full ROM and no clubbing, cyanosis or edema Psych Appearance: well kempt Mental Status: other Speech and Movement: other (mumbled) Mood: other Affect: other (flat) Attitude: cooperative and avoids eye contact Thought Process: circumstantial Thought Content: other Insight: poor Judgment: poor Objective Last Vital Signs Temp 98.1 F 06/18/21 07:25 Pulse 90 06/18/21 07:25 Resp 12 06/18/21 07:25 BP 111/65 06/18/21 07:25 Pulse Ox 97 06/18/21 07:25 Laboratory Results - last 24 hr 06/18/21 06:15 WBC 4.61 RBC 4.68 Hgb 14.5 Hct 41.6 MCV 88.9 MCH 31.0 MCHC 34.9 RDW 12.2 Plt Count 309 MPV 10.7
--- NOTE | 2021-06-18 14:41 | DSE_ITS ---
Date of service: 06/18/21 Time of Service: 14:41 DS: Diagnosis Discharge Diagnosis (1) Altered mental status: Status: Resolved (2) Depression: Status: Chronic (3) Urinary retention: Status: Acute (4) Enterococcus UTI: Status: Acute (5) Bipolar disorder: Status: Chronic (6) Ambulatory dysfunction: Status: Resolved Discharge Plan Disposition Patient Disposition: [facility] Condition: Stable Discharge Details Reason For Visit: Altered Mental Status,Possible Drug OD Admit Date/Time: 06/09/21 12:08 Admit Provider: Jerad Gillis Attending Provider: Jerad Gillis Primary Care Provider: Jerad Huggins Hospital Course Hospital Course: This is a 30 year old male with history of bipolar disorder who presented to the ED via EMS after found with altered mental status on a welfare check. ED initial findings of note for pulse 140, and non-focal exam, and after Castro placed initial 900 cc urine. Labs of note for white count 11.6, HCT 46; Na 137, K 3.1, Chloride 98, HCO3 18.8; BUN/Cr 16/1.0; TBili 3.1 with AST/ALT 15/21; UDS + THC; EKG sinus tach; CXR and head CT negative. [place] level non-detectable. VBG pH 7.48, with HCO3 18. It was suspected that he possibly overdosed on benadryl or some other substance. He was admitted to ICU for further management and monitoring. ?further history reveals that patient tried to hang himself twice over the past week. Consults were sought with psychiatry and neurology regarding further testing and management. a encephalopathic process was ruled out by neurology and he was continued on lorazepam for his catatonia. He responded to treatment and was started on latuda per psychiatric recommendations. His ativan was titrated down from 1 mg qid to TID, but then he became withdrawn again, which was thought to be d/t ativan so this was discontinued. He again started interacting and now is agreeable to inpatient psychiatric placement. Hospital course was also complicated with an enterococcus faec. UTI which was treated with cipro and urinary retention thought possibly d/t anticholinergic overdose or misuse. he has remained medically stable, he has completed his course of antibiotics. A bed has become available at [facility] and he is being transported by ground. discharge discussed with Dr Brown Home Meds and New Rx's Prescriptions: New Latuda 40 mg Tablet 20 mg PO DAILY@1700 Qty: 30 0RF Changed olanzapine 2.5 mg tablet 5 mg PO TID Qty: 0 0RF Label Comments: TAKE 1 TABLET BY MOUTH THREE TIMES DAILY Discharge Instructions Instructions: Urinary Retention in Men (ED), Urinary Tract Infection in Men (DC), Depression (DC) Referrals: Alona Antoine [ [facility] STAFF PHYSICIAN] - 06/26/21 11:30 am Activity:: Activity as Tolerated Equipment/Supplies:: No Equipment Needed Diet:: As Tolerated Discharge Orders Discharge Orders: Discharge Order (Routine); Ordered 06/18/21 Ordered By: Gladys Marinelli DS: Summary Time Spent with Patient providing and/or coordinating discharge services: Greater than 30 minutes Status at Discharge Functional status at discharge: independent ambulation Overall status at discharge: patient is not back to baseline Mental Status: other Speech and Movement: other (mumbled) Mood: other Affect: other (flat) Exam Const General: cooperative, comfortable and no acute distress Nutritional Appearance: obese Eyes Eyelids: eyelids normal Pupils: PERRL Resp Effort & Inspection: normal respiratory effort Auscultation: clear to auscultation bilaterally Cardio Rhythm: regular rhythm GI Auscultation: normal bowel sounds Skin General skin exam: no rashes or lesions noted Neuro General: patient alert, patient awake and patient oriented x3 Extrem General: normal to inspection and full ROM Psych Appearance: well kempt Mental Status: other Speech and Movement: other (mumbled) Mood: other Affect: other (flat) Attitude: avoids eye contact Insight: poor Judgment: poor DS: Data Vitals/I&O Vitals and I&O: Vital Signs Temperature 36.7 C 06/18/21 07:25 Temperature Source Tympanic 06/18/21 07:25 Pulse 90 06/18/21 07:25 Pulse Rhythm Regular 06/18/21 08:51 Pulse 94 H 06/10/21 08:00 Respiratory Rate 12 06/18/21 07:25 Respiratory Effort 06/18/21 08:51 Respiratory Depth Normal 06/18/21 08:51 Respiratory Pattern Normal 06/18/21 08:51 Blood Pressure 111/65 06/18/21 07:25 Blood Pressure Mean 82 06/11/21 09:21 Blood Pressure Position Right Lateral 06/10/21 04:07 Pulse Oximetry 97 06/18/21 07:25 Oxygen Delivery Method Room Air 06/18/21 07:25 Oxygen Flow Rate 0 06/18/21 07:25 Pain Level 0 06/18/21 07:25 Comment 06/15/21 23:54 Intake & Output 06/17/21 06/18/21 06/18/21 23:59 11:59 23:59 Intake Total 480 / 480 0 / 0 Output Total 900 / 900 100 / 100 Balance -420 / -420 -100 / -100 0 / -100 Intake: Oral 480 / 480 0 / 0 Output: Urine 900 / 900 100 / 100 Other: Urine Color Yellow Straw Urine Appearance Clear Clear Urine Odor Normal Comment pT stated that he does not need to use the bathroom. Pt voided 100 ml. Post void bladder scan 280 ml. Pt does not need to be straight cath. Voiding Methods Toilet Urinal Data Completed and Pending Labs on day of discharge: Labs from last 24 hours 06/18/21 06:15 WBC 4.61 RBC 4.68 Hgb 14.5 Hct 41.6 MCV 88.9 MCH 31.0 MCHC 34.9 RDW 12.2 Plt Count 309 MPV 10.7 PFSH All Active Problems (Updated 06/17/21 @ 11:27 by Gladys Marinelli NP) Depression (Chronic) Enterococcus UTI (Acute) Discharge planning issues (Acute) DVT prophylaxis (Acute) Urinary retention (Acute) Bipolar disorder (Chronic) Social History Smoking/Tobacco Use Status: Never Smoking risk assessment performed?: Yes Alcohol Intake: never Drug use: Never Substance use type: does not use Do you feel safe at home: Yes Do you feel safe in your relationship?: Yes
--- NOTE | 2021-06-18 16:26 | PDOC.CMDIS ---
- If Service Date Differs Date of service: 06/18/21 Time of Service: 16:26 LACE Index Scoring Tool - Questions: Length of Stay (in days): 7 - 13 Acuity (Admit via E.D.?): Yes E.D. Visits: 1 - Answers: Total Score: 9 Risk of Readmission: Low Risk Care Management Discharge Reason for Hospitalization: AMS, possible drug OD Discharge Plan: Wilman was accepted at [facility] for inpatient psychiatric stabilization today. He is agreeable to going, as he feels it may benefit him more than the care bed. He will transport via [facility], coordinated by CM. He will follow up with his PCP and discharge plan of care. Patient/Family Education Needs: Review discharge instructions and limitations, discussion of self care needs including ask me three. Services Needed at Discharge: Psychiatric Facility ([facility]), Transportation ([facility]) - Disposition Disposition: [facility]
== END 2021-06-18 16:40 | disposition short-term general hospital (02) | DRG 885 ==
LOC: ER 06-09 00:09 → ICU 06-09 00:11 → MS 06-11 20:26 → ICU 06-22 10:32
PROVIDERS: Internal Medicine; Nurse Practitioner Family; Student in an Organized Health Care Education/Training Program; Admitting Provider General Practice; Emergency Provider Emergency Medicine; PCP Family Medicine; Visit Provider General Practice
DX: F20.2 Catatonic schizophrenia (principal); E87.3 Alkalosis; R45.851 Suicidal ideations; N39.0 Urinary tract infection, site not specified; E87.2 Acidosis; E87.6 Hypokalemia; F31.9 Bipolar disorder, unspecified; R33.9 Retention of urine, unspecified; R26.2 Difficulty in walking, not elsewhere classified; B95.2 Enterococcus as the cause of diseases classified elsewhere; R10.32 Left lower quadrant pain
CPT/HCPCS: 36415; 36416; 51701; 80048; 80051; 80053; 80076; 80307; 82805; 82962; 84145; 85027; 87040; 87077; 87637; 93005; 96361; 96365; 96366; 96375; 97163; 97530; 99285; J1650; Q3014; 70450; 71046; 74177; 80178; 80202; 80320; 80329; 81003; 81015; 82140; 82247; 82248; 83605; 83735; 84443; 85025; 85049; 87086; 87186; 93010; 99220; 99231; 99232; 99233; 99239; 99291; G0378; J0744; J2060; J2405; J3480; J3490

== ENCOUNTER 2025-02-14 15:46 | Outpatient (REF) | payer MEDICAID, SELFPAY ==
[2025-02-14 17:01] LABS: ALT 438 U/L (10-49); AST 136 U/L (<34); Albumin 4.3 g/dL (3.2-5.0); Alkaline Phosphatase 89 U/L (46-116); Anion Gap 10.3 mmol/L (3-11); BUN 15 mg/dL (9-23); Bilirubin, Total 1.4 mg/dL (0.2-1.2); CO2 23.7 mmol/L (20.0-31.0); Calcium 9.1 mg/dL (8.3-10.6); Chloride 108 mmol/L (98-107); Cholesterol 230 mg/dL (<200); Glucose 101 mg/dL (74-106); HDL Cholesterol 56 mg/dL (>40); Potassium 4.1 mmol/L (3.5-5.1); Sodium 142 mmol/L (136-145); Total Protein 7.0 g/dL (5.7-8.2)
[2025-02-14 17:04] LABS: TSH (W/Ref FT4) 1.60 uIU/mL (0.55-4.78)
== END 2025-02-14 15:47 | disposition home or self-care (01) ==
LOC: NCHCN 15:46
PROVIDERS: PCP Family Medicine; Visit Provider Nurse Practitioner Family
DX: Z13.1 Encounter for screening for diabetes mellitus (principal); E03.9 Hypothyroidism, unspecified; Z86.39 Personal history of other endocrine, nutritional and metabolic disease; E78.5 Hyperlipidemia, unspecified
CPT/HCPCS: 80053; 80061; 84443

== ENCOUNTER 2025-03-06 13:54 | Outpatient (REF) | payer MEDICAID, SELFPAY ==
[2025-03-06 16:53] LABS: ALT 89 U/L (10-49); AST 45 U/L (<34); Albumin 4.2 g/dL (3.2-5.0); Alkaline Phosphatase 73 U/L (46-116); Anion Gap 9 mmol/L (3-11); BUN 13 mg/dL (9-23); Bilirubin, Total 1.0 mg/dL (0.2-1.2); CO2 28.0 mmol/L (20.0-31.0); Calcium 9.0 mg/dL (8.3-10.6); Chloride 105 mmol/L (98-107); GGT 147 U/L (<73); Glucose 102 mg/dL (74-106); Potassium 4.2 mmol/L (3.5-5.1); Sodium 142 mmol/L (136-145); Total Protein 6.9 g/dL (5.7-8.2)
[2025-03-06 23:46] LABS: Hepatitis A Antibody IgM Negative (Negative); Hepatitis C Ab w Rflx HCV PCR Negative (Negative)
== END 2025-03-06 13:55 | disposition home or self-care (01) ==
LOC: NCHCN 13:54
PROVIDERS: PCP Family Medicine; Visit Provider Nurse Practitioner Family
DX: R79.89 Other specified abnormal findings of blood chemistry (principal)
CPT/HCPCS: 80053; 86704; 86709; 86803; 87340; 82977